=== PATIENT | female | born 1945 | race Caucasian/White ===

== ENCOUNTER 2016-09-22 21:38 | Inpatient (IN) | payer MEDICARE, MEDICAID ==
[2016-09-22] MEDS ORDERED: Aspirin Low Dose CHEW TAB* 81 MG PO ONE (21:52)
[2016-09-22 22:12] LABS: Hematocrit 43 % (35-47); Hemoglobin 14.1 g/dl (12.0-16.0); Mean Corpuscular HGB Conc 33 g/dl (31-36); Mean Corpuscular Hemoglobin 30 pg (27-31); Mean Corpuscular Volume 91 fL (80-97); Mean Platelet Volume 9 um3 (7.4-10.4); Red Blood Count 4.74 10^6/ul (4.0-5.4); Red Cell Distribution Width 13 % (10.5-15); White Blood Count 13.2 10^3/ul (3.5-10.8)
[2016-09-22] MEDS ORDERED: Nitroglycerin TAB 0.4 MG* 0.4 MG TAB ONE (22:18)
[2016-09-22] MEDS ORDERED: Nitroglycerin TAB 0.4 MG* 0.4 MG TAB SL ONE (22:23)
--- NOTE | 2016-09-22 22:27 | RAD ---
INDICATION: Chest pain COMPARISON: February 02, 2009 TECHNIQUE: An AP portable view obtained at 2210 hours is submitted. FINDINGS: Bones/Soft Tissues: There are no acute bony findings. There is sternotomy/CABG Cardiomediastinal: The cardiomediastinal silhouette is normal. Lungs: There are no infiltrates. Pleura: There are no pleural effusions. Other: None IMPRESSION: POSTOPERATIVE CHANGE. NO ACTIVE DISEASE.
[2016-09-22 22:28] LABS: Albumin 4.4 g/dL (3.2-5.2); Calcium 9.8 mg/dL (8.6-10.3); EGFR African American 61.7 (>60); Globulin 3.2 g/dL (2-4); Potassium 4.4 mmol/L (3.5-5.0); Total Bilirubin 0.3 mg/dL (0.2-1.0); Total Protein 7.6 g/dL (6.4-8.9)
[2016-09-22 22:30] LABS: Troponin I 0.01 ng/mL (<0.04)
[2016-09-22] MEDS ORDERED: nitroGLYCERIN DRIP* 25,000 MCG in PREMIX* 0 ML IV ONE (22:45)
[2016-09-22] MEDS ORDERED: Iodixanol* (CONTRAST) 320 MG/ML 100 ML SDV IV ONE (23:00)
[2016-09-23] MEDS ORDERED: Nitroglycerin TAB 0.4 MG* 0.4 MG TAB SL ONE (00:09)
[2016-09-23] MEDS ORDERED: Nitroglycerin 0.4 MG/HR PATCH* (10 MG) TRANSDERM ONE (00:57)
[2016-09-23] MEDS ORDERED: Melatonin (NF) 3 MG TAB PO PRN (01:14)
[2016-09-23] MEDS ORDERED: hydrALAZINE IV* 20 MG/ML VIAL IV PRN (01:14)
[2016-09-23] MEDS ORDERED: Morphine INJ* 2 MG/ML 1 ML SYRINGE IV PRN (01:14)
[2016-09-23] MEDS ORDERED: Ondansetron INJ* 2 MG/ML VIAL IV PRN (01:14)
[2016-09-23] MEDS ORDERED: NS 0.9% 1000 ML* 1,000 ML IV SCH ×2 (01:15→11:45)
--- NOTE | 2016-09-23 01:37 | HP ---
H&P (Free Text) History and Physical: PCP: Shahla Bronson MD Date/Time of Evaluation: 09/23/2016 0100 CC: chest pain HPI: Mrs Amaro is a 71YO female HX CAD/stent presenting with onset ~1700 of substernal chest discomfort radiating to B elbows and through to the back associated with SOB, nausea without emesis, & sweating. She took a total of 3 SL nitro Q5M without much improvement and called EMS. Her blood pressure was > 200 systolic. ED evaluation is notable for an initial ECG showing diffuse ST depressions which resolved after her pain was controlled. Initial troponin was 0.01 with f/u increasing to 1.6. She has been given 324mg chewable aspirin in the ED & has taken her home doses of metoprolol. She will be placed in the ICU on heparin & nitro GTTs with planned cardiology consult in AM, sooner if her condition worsens. PMedHx CAD/3vCABG/stent x6 DM2 HTN PAOD Allergies No Known Allergies Allergy (Verified 06/10/15 11:05) Ambulatory Orders Nursing to reconcile. Aspirin [Aspirin Adult Low Strengt] 81 mg PO DAILY 04/04/12 Famotidine 20 mg PO BID PRN 04/04/12 Glimepiride 1 tab PO QAM 04/04/12 Simvastatin 40 mg PO BEDTIME 04/04/12 Clopidogrel TAB* [Plavix TAB*] 75 mg PO DAILY #30 tab 04/25/16 Nitroglycerin TAB 0.4 MG* 0.4 mg SL Q5M PRN #0 tab 04/25/16 ALPRAZolam TAB* [Xanax TAB*] 0.25 mg PO SEE INSTRUCTIONS PRN 07/22/16 Metoprolol Succinate XL TAB* [Toprol XL TAB*] 50 mg PO BID 07/22/16 amLODIPine TAB* [Norvasc 5 mg TAB*] 2.5 mg PO DAILY 07/22/16 PSurgHx 3vCABG 2009 cardiac stent x3 2009 cardiac stent x3 2016 B carotid endarterectomy SocHx: former smoker, no alcohol or recreational drugs; lives alone; full code status FamHx: positive for HTN, DM ROS: as above, otherwise reviewed and all were negative Constitutional: NAD, normally developed, overweight white female vitals: Vital Signs Temp 36.6 C 09/22/16 22:02 Pulse 81 09/23/16 01:30 Resp 24 09/23/16 01:30 BP 128/55 09/23/16 01:30 Pulse Ox 97 09/23/16 01:30 Intake & Output 09/22/16 09/22/16 09/23/16 11:59 23:59 11:59 Weight 78.018 kg HEENM: atraumatic; sclera/conjunctiva: non-icteric/clear; hearing: clinically intact; oropharynx: clear, mucosa moist Neck: soft tissue: non-tender; thyroid: normal Pulmonary: clear to auscultation bilaterally, good aeration, no accessory muscle use CV: RR/RR, normal S1S2, no carotid bruit, no jugular venous distention, 2+ B DP/ PT, no edema Abdominal: soft, non-distended, non-tender, no rebound/guarding/rigidity, normoactive bowel sounds, no hepatosplenomegaly or masses, no costovertebral angle tenderness Musculoskeletal: general: grossly intact; gait: stable Integumental: normal appearance and texture of exposed skin Psychiatric orientation: AA&O to PPS affect: calm mood: pleasant eye contact: good content: reliable responses: timely insight: fair to good Testing: Lab Results 09/22/16 09/22/16 09/22/16 Range/Units 22:05 22:05 22:05 WBC 13.2 H (3.5-10.8) 10^3/ul RBC 4.74 (4.0-5.4) 10^6/ul Hgb 14.1 (12.0-16.0) g/dl Hct 43 (35-47) % MCV 91 (80-97) fL MCH 30 (27-31) pg MCHC 33 (31-36) g/dl RDW 13 (10.5-15) % Plt Count 227 (150-450) 10^3/ul MPV 9 (7.4-10.4) um3 Neut % (Auto) 63.9 (38-83) % Lymph % (Auto) 25.8 (25-47) % [place] % (Auto) 7.2 (1-9) % Eos % (Auto) 2.1 (0-6) % Baso % (Auto) 1.0 (0-2) % Absolute Neuts (auto) 8.5 H (1.5-7.7) 10^3/ul Absolute Lymphs (auto) 3.4 (1.0-4.8) 10^3/ul Absolute Monos (auto) 0.9 H (0-0.8) 10^3/ul Absolute Eos (auto) 0.3 (0-0.6) 10^3/ul Absolute Basos (auto) 0.1 (0-0.2) 10^3/ul Absolute Nucleated RBC 0 10^3/ul Nucleated RBC % 0 Sodium 134 (133-145) mmol/L Potassium 4.4 (3.5-5.0) mmol/L Chloride 100 L (101-111) mmol/L Carbon Dioxide 28 (22-32) mmol/L Anion Gap 6 (2-11) mmol/L BUN 19 (6-24) mg/dL Creatinine 1.12 H (0.51-0.95) mg/dL Est GFR ( Amer) 61.7 (>60) Est GFR (Non-Af Amer) 48.0 (>60) BUN/Creatinine Ratio 17.0 (8-20) Glucose 114 H (70-100) mg/dL Lactic Acid 1.5 (0.5-2.0) mmol/L Calcium 9.8 (8.6-10.3) mg/dL Total Bilirubin 0.30 (0.2-1.0) mg/dL AST 20 (13-39) U/L ALT 18 (7-52) U/L Alkaline Phosphatase 84 (34-104) U/L Troponin I 0.01 (<0.04) ng/mL Total Protein 7.6 (6.4-8.9) g/dL Albumin 4.4 (3.2-5.2) g/dL Globulin 3.2 (2-4) g/dL Albumin/Globulin Ratio 1.4 (1-3) ECG, personally reviewed: initially w/ diffuse ST depressions improved w/ pain control CTA C/A/P, personally reviewed: no PE, aneurysm, or dissection Impression: 71F presenting with ACS DIAGNOSIS & PLAN Primary ACS : ICU monitoring : NPO : aspirin : metoprolol (took her home dose) : heparin GTT : nitro GTT : trend troponin : supplemental oxygen : cardiology consult in AM : supportive care Secondary DM2 : NPO : bolus/correctional protocol : check A1c HTN : review meds once reconciled PAOD : continue statin once reconciled Admission Rational: inpatient for ICU monitoring of ACS inappropriate for outpatient setting DVTp: heparin GTT Code Status: full HCP: sonErwin
[2016-09-23] MEDS ORDERED: Heparin DRIP 25,000 UNITS(*) 25,000 UNITS/500 ML BAG IVPB SCH (02:15)
[2016-09-23] MEDS ORDERED: Heparin VIAL(*) 5000 UNITS/ML VIAL (FIVE THOUSAND) IV SCH (03:00)
[2016-09-23] MEDS ORDERED: nitroGLYCERIN DRIP* 250 ML IV SCH (03:00)
[2016-09-23] MEDS: Pantoprazole IV* 40 MG IV SCH ×2 (04:13→08:09)
[2016-09-23 05:04] LABS: Hematocrit 41 % (35-47); Hemoglobin 13.1 g/dl (12.0-16.0); Mean Corpuscular HGB Conc 32 g/dl (31-36); Mean Corpuscular Hemoglobin 29 pg (27-31); Mean Corpuscular Volume 91 fL (80-97); Mean Platelet Volume 9 um3 (7.4-10.4); Red Blood Count 4.46 10^6/ul (4.0-5.4); Red Cell Distribution Width 13 % (10.5-15); White Blood Count 14.9 10^3/ul (3.5-10.8)
[2016-09-23] MEDS: Acetaminophen TAB* 325 MG PO PRN ×2 (05:33→21:24)
[2016-09-23] MEDS: Insulin LISPRO* 1 UNITS UNIT SUBCUT SCH ×5 (06:11→20:40)
[2016-09-23] MEDS ORDERED: Famotidine TAB* 20 MG PO PRN (07:16)
[2016-09-23] MEDS ORDERED: ALPRAZolam TAB* 0.25 MG PO PRN (07:17)
--- NOTE | 2016-09-23 07:50 | RAD ---
HISTORY: Chest pain radiating to back COMPARISONS: January 26, 2010 TECHNIQUE: Multiple contiguous axial CT scans were obtained of the chest, abdomen, and pelvis after the administration of intravenous contrast. Coronal and sagittal multiplanar reformations are submitted for review.. Oral contrast was not administered. Delayed images were obtained through the abdomen and pelvis. 3-D volumetric reconstructions of the aorta are also submitted for review FINDINGS: Evaluation is limited by suboptimal contrast opacification of the aorta CHEST NECK AND THYROID: The lower neck and thyroid are unremarkable. CHEST WALL: There is no lower cervical, axillary, or supraclavicular lymphadenopathy by size criteria. HEART AND PERICARDIUM: Coronary and valvular cardiac calcifications are noted. AORTA AND PULMONARY VASCULATURE: There is calcification of the thoracic aorta. The pulmonary vasculature is unremarkable. There is no appreciable intimal flap to suggest dissection. There is no aneurysmal dilatation. There is no pulmonary arterial filling defect to suggest embolism. MEDIASTINUM: There is no mediastinal lymphadenopathy by size criteria. GENEVA: There is no hilar lymphadenopathy by size criteria. AIRWAY AND ESOPHAGUS: The airway is unremarkable, without endobronchial filling defect. The esophagus is grossly normal. LUNG PARENCHYMA: The lungs are clear. PLEURA: No pleural abnormalities are noted. BONES AND SOFT TISSUES: The patient is status post median sternotomy. Degenerative changes are noted along the spine ABDOMEN/PELVIS: LIVER: The liver is normal in shape, size, contour, and attenuation. BILE DUCTS: There is no intrahepatic or extrahepatic biliary dilatation. GALLBLADDER: The gallbladder is normal, without pericholecystic inflammatory change. PANCREAS: The pancreas is normal, without mass or ductal dilatation. SPLEEN: Normal in size and appearance. UPPER GI TRACT: Evaluation of the gastrointestinal tract is limited by incomplete gastric distention. There is a small sliding hiatal hernia SMALL BOWEL \T\ MESENTERY: The small bowel is normal in contour, course, and caliber. There is no obstruction or dilatation. COLON: There are multiple diverticula of the distal colon. There is no pericolonic inflammatory change. There is a tubular, vermiform, hollow viscus that is blind ending, and originates from the cecum, consistent with a normal appendix. There is no periappendiceal inflammatory change. ADRENALS: Normal bilaterally. KIDNEYS: The kidneys are normal in shape, size, contour, and axis. There is no hydronephrosis or nephrolithiasis. BLADDER: The bladder is smooth in contour. PELVIC ORGANS: The uterus and adnexa are grossly normal for technique. AORTA: There is calcific atherosclerotic disease of the abdominal aorta and its branches, without aneurysmal dilatation. IVC: Unremarkable LYMPH NODES: There is no lymphadenopathy by size criteria. ABDOMINAL WALL: There is no evidence for abdominal wall hernia. BONES: Degenerative changes are noted OTHER: None IMPRESSION: 1. NO INTIMAL FLAP TO SUGGEST AORTIC DISSECTION. NO ANEURYSMAL DILATATION OF THE AORTA.. 2. ATHEROSCLEROSIS. 3. DIVERTICULOSIS. 4. SMALL HIATAL HERNIA
[2016-09-23] MEDS ORDERED: Ticagrelor* 90 MG TAB PO ONE (07:59)
[2016-09-23] MEDS: Docusate CAP* 100 MG PO SCH ×2 (08:06→21:24)
[2016-09-23] MEDS: Aspirin Low Dose CHEW TAB* 81 MG PO SCH (08:07)
[2016-09-23] MEDS: Clopidogrel TAB* 75 MG PO SCH (08:19)
[2016-09-23] MEDS ORDERED: amLODIPine TAB* 5 MG PO SCH (09:00)
[2016-09-23] MEDS ORDERED: Metoprolol Succinate XL TAB* 50 MG PO SCH (09:00)
[2016-09-23] MEDS ORDERED: Clopidogrel TAB* 75 MG PO SCH (09:00)
[2016-09-23] MEDS ORDERED: fentaNYL* 50 MCG/ML 2 ML VIAL (100 MCG VIAL) ONE (09:22)
[2016-09-23] MEDS ORDERED: Midazolam* 1 MG/ML 5 ML VIAL (5 MG) ONE (09:22)
[2016-09-23] MEDS ORDERED: Lidocaine 1% INJ* 10 MG/ML 30 ML SDV ONE (09:23)
[2016-09-23] MEDS ORDERED: Heparin 2 UNITS/ML IVPREMIX* 3,000 ML IV ONE (09:23)
[2016-09-23] MEDS ORDERED: Adenosine* 3 MG/ML VIAL ONE (10:58)
[2016-09-23] MEDS ORDERED: Heparin(*) 1000 UNIT/ML 10 ML VIAL CATH LAB IV ONE (11:01)
[2016-09-23] MEDS ORDERED: Iodixanol* (CONTRAST) 320 MG/ML 100 ML SDV ONE (11:09)
[2016-09-23] MEDS ORDERED: Nitroglycerin TAB 0.4 MG* 0.4 MG TAB SL PRN (11:32)
[2016-09-23] MEDS ORDERED: Metoprolol Succinate XL TAB* 25 MG PO ONE (11:44)
[2016-09-23] MEDS ORDERED: amLODIPine TAB* 5 MG PO ONE (11:44)
--- NOTE | 2016-09-23 12:57 | CONS ---
CONSULTATION REPORT: DATE OF CONSULT: 09/23/16 INDICATION FOR CONSULT: The patient with a non-STEMI myocardial infarction. HISTORY OF PRESENT ILLNESS: The patient is a pleasant 71-year-old female known to me for significant vascular disease, who presents having had the onset of around 5 p.m. yesterday of chest discomfort radiating to both elbows and through the back associated with shortness of breath, some nauseousness and sweating. She took 3 nitroglycerins, got relief and eventually called the paramedics. She presented to the emergency room at 2138. Over the course of her time in the emergency room, she had received further nitroglycerin and eventually had relief of her symptoms. She was placed on an IV nitroglycerin drip and maintained on her medications. Her initially EKG demonstrated ST segment depressions noted in V2, V3, V4 and suddenly in V5 and V6 as well as aVF and III and slightly in lead II. Followup EKG showed significant improvement of those ST segments. Over the course of the night, her cardiac enzymes scott from an initial value of 0.01 to high this morning of 4.19. There are no further ones at this moment. In sitting with her now, she is completely without significant symptoms. She has a significant coronary artery history including acute coronary syndrome in 2008 with catheterization with the presence of multivessel disease, subsequently undergoing a bypass surgery on 02/12/09 with a free pedicled ANNIE graft to an obtuse marginal branch, a vein graft to a low posterolateral branch of the circumflex, and a vein graft to the right coronary artery. She had unstable angina in 2009 with subsequent cardiac catheterization during which time the circumflex had mild diffuse disease in the proximal segment with 75% stenosis passed a very small first obtuse marginal branch and occluded second obtuse marginal branch, which was bypassed and a long 90% stenosis in the distal circumflex. The distal end of the occluded graft of the posterior LV branch was seen. The right coronary artery was totally occluded proximally. The vein graft to the right coronary artery was well perfused. Saphenous vein graft to the posterolateral branch was occluded. The free pedicle ANNIE graft to the second obtuse marginal branch had an 80% proximal stenosis and was intervened on with placement of a 2.25 x 12 mm long Edson drug-eluting stent proximally dilated to 2.5 mm of stenting in the distal lesion in the circumflex with 2.25 x 16 mm long Edson resulting in closure of a postero-lateral branch distally to the stent, which was treated with a second 2.25 x 12 mm long Edson stent. She developed a ST segment elevation lateral wall myocardial infarction on 04/22/16 with cardiac catheterization showing critical disease to the mid and distal circumflex, which was stented with drug-eluting stents with moderate in-stent restenosis to the ostium/proximal portion of the vein graft of the obtuse marginal branch. She did well post procedure and underwent a stress test on 07/23/16 with a Regadenoson stress test during which time the nuclear images showed no fixed or reversible fusion abnormalities. The EF was 84% and there were no EKG changes of ischemia or significant hemodynamic changes. Her cardiac risk factors include a history of type 2 insulin diabetes, hypertension. She currently does not smoke. She has no family history of early coronary artery disease and she has hyperlipidemia. PAST MEDICAL HISTORY: Includes the essential hypertension. She has peripheral vascular disease with carotid artery disease with reportedly a total carotid endarterectomy back in 2009 in the left and right carotid endarterectomy in 2013. She has reportedly history of a brain hemorrhage in the past, which has precluded the usage of other antiplatelet agents other than clopidogrel. She has a history of ovarian cyst and coronary artery disease. PAST SURGICAL HISTORY: Bypass surgery as mentioned earlier and the carotid endarterectomy to the left in 2009 and to the right in 2013. MEDICATIONS: Current medications at home and included: 1. Amlodipine 2.5 mg daily. 2. Metoprolol succinate 50 mg twice a day. 3. Alprazolam as needed. 4. Nitroglycerin as needed. 5. Clopidogrel 75 mg a day. 6. Glimepiride 1 mg in the morning. 7. Simvastatin 40 mg a day. 8. Baby aspirin 81 mg a day. 9. Famotidine p.r.n. ALLERGIES: She has no known drug allergies. REVIEW OF SYSTEMS: As per the H and P with no additional entries. PHYSICAL EXAM: When I see her reveals pleasant female, currently in no acute distress. Vital signs revealed blood pressure 151/69 with pulse 87. This is before medications were being given, respirations 15, O2 saturation 96% on room air, pulse 83. Neck is supple. Bilateral scars from bilateral carotid endarterectomies were noted. The left carotid artery has a bruit; the right does not. Conjunctivae pink. Sclerae clear. Mouth reveals moist mucosa. Lungs reveal no accessory muscle usage. There is good excursion. Lungs are relatively clear to A and P. Heart reveals no visible heaves. No palpable heaves or thrills. Normal S1, S2. A question of a S4 gallop is noted. No significant systolic or diastolic murmur. Abdomen is soft, nontender without organomegaly. Extremities are without clubbing, cyanosis, or geoff pitting edema. Right femoral pulse is present. There is a soft bruit. The left femoral pulse is difficult to palpate. Distal pulses on the right are intact. Neuro: The patient is alert, oriented with normal mentation. Musculoskeletal: The patient moves all extremities appropriate. Psychological: The patient with normal affect. DIAGNOSTIC STUDIES/LAB DATA: Laboratory results revealed a hemoglobin and hematocrit of 14.1 and 43 on admission with a platelet count of 227,000, white count 13,200, repeat white count of 14,900, hemoglobin 13.1 and hematocrit of 41. Platelet count of 210,000. BUN and creatinine are 19 and 1.1. Sodium 134, potassium 4.4. Lactic acid 1.5. SGOT 20, SGPT 18. Troponins were as mentioned above starting at 0.01 to 1.62 to 4.19. Total protein and albumin 7.6 and 4.4. Electrocardiogram as described above with reversible ST segment depression in the early precordial leads as well as inferior leads. Chest x- ray shows no acute pathology. OVERALL ASSESSMENT: Lise presents now with non-ST segment elevation, myocardial infarction with reversible ST segment changes. Of note, if this is a posterior wall involvement, one could argue that this was potentially reversible ST segment elevation. At this point in time, she is stable on the heparin drip and on clopidogrel. Unfortunately, she has a history of remote intracranial hemorrhage and as such although I would like to use Brilinta, at this point in time, I am hesitant about proceeding with that until we get a better sense of what is her anatomy and what can and cannot be done percutaneously. The risks and benefits of cardiac catheterization were explained to her. She understands them and wishes to proceed. She reversed her DNR status for at least a month following cardiac catheterization. Further management will be made pending results of the cardiac catheterization. CC: Dr. Orlando Bronson* [id number]/[facility] #: [id number] MTDD
[2016-09-23] MEDS ORDERED: Lisinopril TAB* 5 MG PO ONE (15:07)
--- NOTE | 2016-09-23 19:59 | ED ---
Pancho Byrnes Billy, scribed for Jeffrey Cagle MD on 09/22/16 at 2243 . HPI Chest Pain - HPI Summary HPI Summary: Patient is a 71 year-old female coming to [facility] presenting with symptoms similar to her previous OK since 1700 today at rest. Patient states that she had chest pain at 1700 today which improved with 3x NTG. However, she continues to have pain in her elbows bilaterally and in her back. She reports BP 220 systolic at the time of onset. Pain severity 12/23. She reports mild SOB which has improved. Denies any lower extremity edema. - History of Current Complaint Chief Complaint: EDChestPainROMI Time Seen by Provider: 09/22/16 21:52 Hx Obtained From: Patient Onset/Duration: Started Hours Ago, Still Present Time of Onset: 17:00 Timing: Constant Initial Severity: Moderate Current Severity: Moderate Pain Intensity: 7 Pain Scale Used: 0-10 Numeric Chest Pain Radiates To:: Back, Arm Aggravating Factor(s): Nothing Alleviating Factor(s): NTG 123 Associated Signs and Symptoms: Positive: Shortness of Breath, Other: - hypertension - Additional Pertinent History Primary Care Physician: [id number] - Allergy/Home Medications Allergies/Adverse Reactions: Allergies Allergy/AdvReac Type Severity Reaction Status Date / Time No Known Allergies Allergy Verified 06/10/15 11:05 PMH/Surg Hx/FS Hx/Imm Hx Endocrine/Hematology History: Reports: Hx Diabetes - TYPE 2 Cardiovascular History: Reports: Hx Angina - HEAVINESS, Hx Coronary Artery Disease - TIEN ENDARTERECTOMYS, Hx Hypercholesterolemia, Hx Hypertension - ON MEDS, Hx Myocardial Infarction, Other Cardiovascular Problems/Disorders - 2009, 4 CARDAIC STENTS Respiratory History: Denies: Hx Asthma GI History: Reports: Hx Gastroesophageal Reflux Disease Denies: Other GI Disorders History: Reports: Other Problems/Disorders - 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 4 CARDIAC STENTS, 2009, [facility]. TIEN ENDARTERECTOMYS, 2010, 2013, [facility]. OVARYS REMOVED, 12/2014, [facility]. TRANSURETHRAL RESECTION OF BLADDER LESION. left breast lumpectomy stage zero. LUMPECTOMY. RIGHT RETROGRADE PYELOGRAM AND RT STENT INSERTION Hx Anesthesia Reactions: No - Immunization History Date of Tetanus Vaccine: Unk Date of Influenza Vaccine: None Infectious Disease History: No Infectious Disease History: Denies: Traveled Outside the [place] in Last 30 Days - Family History Known Family History: Positive: Cardiac Disease - Social History Alcohol Use: None Substance Use Type: Reports: None Smoking Status (MU): Current Some Day Smoker Type: Cigarettes Amount Used/How Often: 1 a day Have You Smoked in the Last Year: Yes Review of Systems Negative: Fever Negative: Erythema Negative: Sore Throat Positive: Chest Pain, Other - 220 systolic Positive: Shortness Of Breath. Negative: Cough Negative: Abdominal Pain, Vomiting, Nausea Negative: Myalgia, Edema Negative: Rash All Other Systems Reviewed And Are Negative: Yes Physical Exam - Summary Physical Exam Summary: Constitutional: Well-developed, Well-nourished, Alert. (-) Distressed Skin: Warm, Dry HENT: Normocephalic; Atraumatic Eyes: Conjunctiva normal Neck: Musculoskeletal ROM normal neck. (-) JVD, (-) Stridor, (-) Tracheal deviation Cardio: Rhythm regular, rate normal, Heart sounds normal; Intact distal pulses; The pedal pulses are 2+ and symmetric. Radial pulses are 2+ and symmetric. (-) Murmur Pulmonary/Chest wall: Effort normal. (-) Respiratory distress, (-) Wheezes, (-) Rales Abd: Soft, (-) Tenderness, (-) Distension, (-) Guarding, (-) Rebound Musculoskeletal: (-) Edema Lymph: (-) Cervical adenopathy Neuro: Alert, Oriented x3 Psych: Mood and affect Normal Triage Information Reviewed: Yes Vital Signs On Initial Exam: Initial Vitals Temp Pulse Resp BP Pulse Ox 98 F 87 17 187/83 98 09/22/16 22:02 09/22/16 22:02 09/22/16 22:02 09/22/16 22:02 09/22/16 22:02 Vital Signs Reviewed: Yes Diagnostics - Vital Signs Vital Signs Temp Pulse Resp BP Pulse Ox 09/22/16 22:23 89 16 137/66 98 09/22/16 22:05 92 98 09/22/16 22:02 98 F 87 17 187/83 98 - Laboratory Lab Results: Lab Results 09/22/16 09/22/16 09/22/16 Range/Units 22:05 22:05 22:05 WBC 13.2 H (3.5-10.8) 10^3/ul RBC 4.74 (4.0-5.4) 10^6/ul Hgb 14.1 (12.0-16.0) g/dl Hct 43 (35-47) % MCV 91 (80-97) fL MCH 30 (27-31) pg MCHC 33 (31-36) g/dl RDW 13 (10.5-15) % Plt Count 227 (150-450) 10^3/ul MPV 9 (7.4-10.4) um3 Neut % (Auto) 63.9 (38-83) % Lymph % (Auto) 25.8 (25-47) % [place] % (Auto) 7.2 (1-9) % Eos % (Auto) 2.1 (0-6) % Baso % (Auto) 1.0 (0-2) % Absolute Neuts (auto) 8.5 H (1.5-7.7) 10^3/ul Absolute Lymphs (auto) 3.4 (1.0-4.8) 10^3/ul Absolute Monos (auto) 0.9 H (0-0.8) 10^3/ul Absolute Eos (auto) 0.3 (0-0.6) 10^3/ul Absolute Basos (auto) 0.1 (0-0.2) 10^3/ul Absolute Nucleated RBC 0 10^3/ul Nucleated RBC % 0 Sodium 134 (133-145) mmol/L Potassium 4.4 (3.5-5.0) mmol/L Chloride 100 L (101-111) mmol/L Carbon Dioxide 28 (22-32) mmol/L Anion Gap 6 (2-11) mmol/L BUN 19 (6-24) mg/dL Creatinine 1.12 H (0.51-0.95) mg/dL Est GFR ( Amer) 61.7 (>60) Est GFR (Non-Af Amer) 48.0 (>60) BUN/Creatinine Ratio 17.0 (8-20) Glucose 114 H (70-100) mg/dL Lactic Acid 1.5 (0.5-2.0) mmol/L Calcium 9.8 (8.6-10.3) mg/dL Total Bilirubin 0.30 (0.2-1.0) mg/dL AST 20 (13-39) U/L ALT 18 (7-52) U/L Alkaline Phosphatase 84 (34-104) U/L Troponin I 0.01 (<0.04) ng/mL Total Protein 7.6 (6.4-8.9) g/dL Albumin 4.4 (3.2-5.2) g/dL Globulin 3.2 (2-4) g/dL Albumin/Globulin Ratio 1.4 (1-3) Result Diagrams: 09/23/16 05:00 09/22/16 22:05 Lab Statement: Any lab studies that have been ordered have been reviewed, and results considered in the medical decision making process. - Radiology CXR Radiology Interpretation Completed By: Radiologist - Post-operative changes. No acute findings. - CT CTA C/A/P CT Interpretation Completed By: Radiologist - No aortic dissection or other findings for acute pathology. Tiny hiatal hernia. - EKG 2211 EKG Interpretation: NSR 89 bpm, ST depression in anterior, inferior, and lateral leads 0021 EKG Interpretation: NSR 84 bpm, ST depression resolved Re-Evaluation - Re-Evaluation First Eval Re-Evaluation Time: 00:55 Change: Improved Comment: Labs and imaging reviewed. Pain is now 10/23. Chest Pain Course/Dx - Course Assessment/Plan: 71 y/o female coming to [facility] for evaluation of chest pain since 0 today. CTA c/a/p was reviewed as read by the radiologist. CXR shows no acute findings. Initial EKG showed ST depressions, although these improved markedly with a repeat EKG two hours later. Patient was given ASA and NTG in the ED. Patient care discussed with Dr. Garsia, who accepted admission. - Diagnoses Provider Diagnoses: Myocardial ischemia, Angina at rest - Provider Notifications Discussed Care Of Patient With: Dr. Garsia (hospitalist) @ 0100: accepts admission. Discharge - Discharge Plan Condition: Stable Disposition: ADMITTED TO [facility] The documentation as recorded by the Pancho broussard Billy accurately reflects the service I personally performed and the decisions made by me, Jeffrey Cagle MD.
[2016-09-23] MEDS ORDERED: Insulin GLARGINE(*) 1 UNITS UNIT SUBCUT SCH (21:00)
[2016-09-23] MEDS ORDERED: Atorvastatin* 20 MG TAB PO SCH (21:00)
[2016-09-23] MEDS ORDERED: Metoprolol Succinate XL TAB* 25 MG PO SCH (21:00)
[2016-09-24] MEDS ORDERED: Heparin VIAL(*) 5000 UNITS/ML VIAL (FIVE THOUSAND) SUBCUT SCH (06:00)
[2016-09-24 06:10] LABS: Hematocrit 36 % (35-47); Hemoglobin 11.8 g/dl (12.0-16.0); Mean Corpuscular HGB Conc 32 g/dl (31-36); Mean Corpuscular Hemoglobin 29 pg (27-31); Mean Corpuscular Volume 91 fL (80-97); Mean Platelet Volume 9 um3 (7.4-10.4); Red Blood Count 4.01 10^6/ul (4.0-5.4); Red Cell Distribution Width 13 % (10.5-15); White Blood Count 10.6 10^3/ul (3.5-10.8)
[2016-09-24 06:25] LABS: Albumin 3.3 g/dL (3.2-5.2); BUN/Creatinine Ratio 13.5 (8-20); Calcium 8.6 mg/dL (8.6-10.3); EGFR African American 80.4 (>60); EGFR Non-African American 62.5 (>60); Globulin 2.5 g/dL (2-4); HDL Cholesterol 31.9 mg/dL; Potassium 3.8 mmol/L (3.5-5.0); Total Bilirubin 0.4 mg/dL (0.2-1.0); Total Protein 5.8 g/dL (6.4-8.9)
[2016-09-24] MEDS: Insulin LISPRO* 1 UNITS UNIT SUBCUT SCH ×4 (07:54→12:07)
[2016-09-24] MEDS: Pantoprazole IV* 40 MG IV SCH (08:01)
[2016-09-24] MEDS: Aspirin Low Dose CHEW TAB* 81 MG PO SCH (08:01)
[2016-09-24] MEDS: Docusate CAP* 100 MG PO SCH (08:01)
[2016-09-24] MEDS: Clopidogrel TAB* 75 MG PO SCH (08:02)
--- NOTE | 2016-09-24 08:56 | CATH ---
CARDIAC CATHETERIZATION AND FRACTIONAL FLOW RESERVE REPORT DATE OF PROCEDURE: 09/24/16 INDICATION FOR PROCEDURE: Patient with acute coronary syndrome, non-ST- elevation myocardial infarction by cardiac enzymes. PROCEDURE: Coronary arteriography of the left coronary artery, vein graft arteriography of the right coronary artery vein graft, free pedicle ANNIE arteriography to the obtuse marginal branch, left heart catheterization, left ventriculography, fractional flow reserve analysis of mid posterior descending artery lesion via the vein graft to the right coronary artery. DESCRIPTION OF PROCEDURE: The patient was interviewed and examined in the intensive care unit where the risks and benefits of the procedure were explained. She understood them and wished to proceed. The patient was brought to the cardiovascular laboratory where formal time-out was performed. The patient was prepped and draped in sterile fashion. Right groin area was anesthetized with 1% lidocaine. Right femoral artery was cannulated, and a 5- [place] introducer was placed. Coronary arteriography of the left coronary artery was performed utilizing both a 5-[place] 4-curve [place] catheter and a 5- [place] 3.5-curve left [place] catheter. Vein graft arteriography of the right coronary artery was performed utilizing a 5-[place] multi-purpose catheter. Free pedicle ANNIE graft arteriography to the obtuse marginal branch was performed utilizing a 5-[place] left coronary artery bypass graft catheter. Following this, central aortic pressure was recorded using a 5-[place] angled pigtail catheter advanced to the ascending aorta. The catheter was then passed across the aortic valve to the left ventricle where left ventricular pressure was recorded. Left ventriculography was performed using a total of 24 cc of Visipaque dye at a rate of 12 cc/second. The catheter was pulled back across the aortic valve to recheck gradient. Following this, the decision was made to perform fractional flow reserve analysis of the mid lesion in the right- sided posterior descending artery via the vein graft to the posterior descending artery. ACT was checked with her on a heparin drip, and additional heparin boluses were given to obtain a therapeutic ACT. Guiding views were obtained utilizing the 5-[place] multipurpose catheter. A Wi-Fi FFR wire by [employer] [place] was advanced down the vein graft into the [place] right coronary artery after being calibrated just outside the diagnostic catheter. The Wi-Fi wire was passed distal to the mid lesion in the right coronary artery posterior descending artery branch. A bolus of 144 mcg of Adenosine was administered with the patient developing transient heart block and FFR was obtained. Following this, the wire was removed and the catheter was removed. An injection was made into the right femoral sheath to assess eligibility to use closure device. It was found to be suboptimal for this and, as such, the sheath was sutured in place for manual withdrawal in the intensive care unit. The total contrast used was 180 cc of Visipaque dye. The radiation exposure included 18.4 minutes of fluoro time. The air kerma radiation was 1564 mGy. The DAP radiation was 9757 microgray per meter square. RESULTS: HEMODYNAMIC DATA: - Left heart catheterization: Central aortic pressure was recorded at 156/ 73 with a mean of 108, left ventricular pressure 154 over left ventricular end- diastolic pressure of 15. LEFT VENTRICULOGRAPHY: - Performed in the URIARTE projection revealed hyperdynamic left ventricular systolic function with an ejection fraction of 80%. CORONARY ARTERIOGRAPHY OF THE LEFT CORONARY ARTERY: 1. Left main - left main short in nature and widely patent. 2. Left anterior descending artery - the left anterior descending artery had mild to moderate calcification in its proximal to mid segment with area of reduction of perhaps 30-35%. A small caliber first diagonal branch had a 55-60 % proximal stenosis noted (a non-interventional vessel). The rest of the left anterior descending artery supplied the mid diagonal branch which had no significant disease. The left anterior descending artery continued on to the apical and distal inferior wall without significant obstruction. 3. Circumflex artery - a non-dominant vessel supplying a thin first obtuse marginal branch followed by small caliber second and third obtuse marginal branch ending in a low-lying obtuse marginal branch. The proximal and ostial circumflex was a small caliber vessel with damping of the catheter on the 5- [place] insertion. The degree of narrowing throughout this proximal area compared to the more distal area appeared to be approximately 55-60%. The area of prior stenting appeared to be widely patent with no significant stenosis. Just past the most distal stent was a narrowing of about 45-50%. VEIN GRAFT TO RIGHT CORONARY ARTERY: Widely patent with good anastomosis with retrograde filling of the right coronary artery. Of note - the mid segment of the posterior descending artery had a slightly hazy, 65% obstruction noted. The rest of the right coronary artery appeared to have no significant disease on retrograde filling. It did not fill up to the most proximal segment of the right coronary artery. (The right coronary artery was known to be 100% occluded from multiple prior catheterizations.) FREE PEDICLE ANNIE GRAFT TO OBTUSE MARGINAL BRANCH: A proximal area of the ANNIE graft showed narrowing of 55% in its proximal segment in multiple views. The rest of the vein graft supplied the obtuse marginal branch with no significant stenosis seen. FRACTIONAL FLOW RESERVE ANALYSIS OF THE MID POSTERIOR DESCENDING ARTERY LESION - (performed via the vein graft to the posterior descending artery): Fractional flow reserve value obtained was 0.97 after administration of 144 mcg of Adenosine. OVERALL ASSESSMENT: Multiple vessel coronary artery disease as described above with prior known total occlusion of the right coronary artery, and diffusely diseased proximal non- critical circumflex but small caliber as described. Prior history of known totally occluded vein graft to low-lying obtuse marginal branch with widely patent stents to the circumflex area from prior intervention. Moderate disease in the proximal portion of the free pedicle ANNIE graft to the mid diagonal branch as described. A negative fractional flow reserve analysis to the mid right coronary artery posterior descending artery lesion suggested, and not a hemodynamically significant lesion at this time. Recommend aggressive medical management, specifically directed toward control of blood pressure to avoid excessive blood pressure swings that may produce stress- induced myocardial ischemia or damage. Medications will be titrated over the course of the next 24-48 hours. CC: Dr. Bronson. * [id number]/CPS #: [id number] GLORIA
[2016-09-24] MEDS ORDERED: amLODIPine TAB* 5 MG PO SCH (09:00)
[2016-09-24] MEDS ORDERED: Lisinopril TAB* 5 MG PO SCH (09:00)
[2016-09-24] MEDS ORDERED: Metoprolol Succinate XL TAB* 100 MG PO SCH (09:00)
[2016-09-24] MEDS: NS 0.9% 250 ML* 250 ML IV ONE ×2 (10:00→10:15)
--- NOTE | 2016-09-24 10:38 | DCNOTE ---
Subjective Date of Service: 09/24/16 Interval History: No chest pain, cough, SOB. Walked in [place] without dizziness. No new c/o, anxious to go home. Objective Active Medications: Acetaminophen (Tylenol Tab*) 650 mg PO Q6H PRN PRN Reason: FEVER/PAIN Last Admin: 09/23/16 21:24 Dose: 650 mg Alprazolam (Xanax Tab*) 0.25 mg PO TID PRN PRN Reason: ANXIETY Last Admin: 09/23/16 17:54 Dose: 0.25 mg Amlodipine Besylate (Norvasc Tab*) 5 mg PO DAILY [facility] Last Admin: 09/24/16 08:01 Dose: 5 mg Aspirin (Aspirin Low Dose Tab*) 81 mg PO DAILY [facility] Last Admin: 09/24/16 08:01 Dose: 81 mg Atorvastatin Calcium (Lipitor*) 20 mg PO BEDTIME [facility] Last Admin: 09/23/16 21:24 Dose: 20 mg Clopidogrel Bisulfate (Plavix Tab*) 75 mg PO DAILY [facility] Last Admin: 09/24/16 08:02 Dose: 75 mg Docusate Sodium (Colace Cap*) 200 mg PO BID [facility] Last Admin: 09/24/16 08:01 Dose: 200 mg Famotidine (Pepcid Tab*) 20 mg PO BID PRN PRN Reason: HEARTBURN Last Admin: 09/23/16 08:07 Dose: 20 mg Heparin Sodium (Porcine) (Heparin Vial(*)) 0 units IV .PER PROTOCOL [facility] Sodium Chloride (Ns 0.9% 1000 Ml*) 1,000 mls @ 75 mls/hr IV PER RATE [facility] Last Admin: 09/23/16 04:02 Dose: 75 mls/hr Heparin Sodium/Dextrose (Heparin Drip 25,000 Units(*)) 25,000 units in 500 mls @ 0 mls/hr IVPB .(INITIAL RATE) [facility]; Per Protocol PRN Reason: Protocol Last Admin: 09/23/16 04:03 Dose: 20 mls/hr Nitroglycerin/Dextrose (Nitroglycerin Drip*) 250 mls @ 3 mls/hr IV .(Initial Rate) [facility] PRN Reason: 5 MCG/MIN Last Admin: 09/23/16 04:10 Dose: 3 mls/hr Insulin Glargine (Lantus(*)) 19 units SUBCUT 2100 [facility] Stop: 09/24/16 20:00 Last Admin: 09/23/16 21:24 Dose: Not Given Insulin Human Lispro (Humalog*) 0 units SUBCUT ACHS [facility] PRN Reason: Protocol Last Admin: 09/24/16 07:54 Dose: Not Given Insulin Human Lispro (Humalog*) 0 units SUBCUT AC [facility] PRN Reason: Protocol Last Admin: 09/24/16 08:50 Dose: Not Given Lisinopril (Prinivil Tab*) 5 mg PO DAILY [facility] Last Admin: 09/24/16 08:01 Dose: 5 mg Melatonin (Melatonin (Nf)) 3 mg PO BEDTIME PRN; Protocol PRN Reason: Sleep Metoprolol Succinate (Toprol Xl Tab*) 100 mg PO BID [facility] Last Admin: 09/24/16 08:01 Dose: 100 mg Morphine Sulfate (Morphine Inj (Syringe)*) 2 mg IV Q4H PRN PRN Reason: PAIN - MILD Nitroglycerin (Nitroglycerin Tab 0.4 Mg*) 0.4 mg SL Q5M PRN PRN Reason: ANGINA Ondansetron HCl (Zofran Inj*) 4 mg IV Q6H PRN PRN Reason: NAUSEA Last Admin: 09/23/16 18:35 Dose: 4 mg Pantoprazole Sodium (Protonix Iv*) 40 mg IV DAILY [facility] Last Admin: 09/24/16 08:01 Dose: 40 mg Vital Signs 09/23/16 09/23/16 09/23/16 10:52 11:00 11:30 Temperature Pulse Rate 55 60 Respiratory Rate Blood Pressure 109/70 120/60 116/60 (mmHg) O2 Sat by Pulse 96 97 Oximetry 09/23/16 09/23/16 09/23/16 11:50 12:00 12:04 Temperature Pulse Rate 62 59 Respiratory 15 Rate Blood Pressure 163/79 132/122 (mmHg) O2 Sat by Pulse 95 98 Oximetry 09/23/16 09/23/16 09/23/16 12:09 12:15 12:30 Temperature 98.2 F Pulse Rate 80 79 Respiratory 16 15 15 Rate Blood Pressure (mmHg) O2 Sat by Pulse 95 96 Oximetry 09/23/16 09/23/16 09/23/16 12:45 13:00 13:09 Temperature Pulse Rate 78 78 Respiratory 19 14 14 Rate Blood Pressure (mmHg) O2 Sat by Pulse 97 96 Oximetry 09/23/16 09/23/16 09/23/16 13:15 13:23 13:30 Temperature Pulse Rate 72 73 Respiratory 15 18 Rate Blood Pressure 122/64 (mmHg) O2 Sat by Pulse 96 96 Oximetry 09/23/16 09/23/16 09/23/16 13:45 14:00 14:15 Temperature Pulse Rate 73 71 81 Respiratory 14 16 22 Rate Blood Pressure (mmHg) O2 Sat by Pulse 98 99 99 Oximetry 09/23/16 09/23/16 09/23/16 14:22 14:30 14:45 Temperature Pulse Rate 70 80 79 Respiratory 16 17 14 Rate Blood Pressure 120/61 (mmHg) O2 Sat by Pulse 98 98 100 Oximetry 09/23/16 09/23/16 09/23/16 15:00 15:08 15:15 Temperature Pulse Rate 95 83 78 Respiratory 25 18 16 Rate Blood Pressure 130/72 89/65 (mmHg) O2 Sat by Pulse 99 99 99 Oximetry 09/23/16 09/23/16 09/23/16 15:30 15:45 16:00 Temperature Pulse Rate 60 74 81 Respiratory 17 18 Rate Blood Pressure 100/70 138/63 (mmHg) O2 Sat by Pulse 96 99 99 Oximetry 09/23/16 09/23/16 09/23/16 16:15 16:30 16:44 Temperature Pulse Rate 77 79 Respiratory 14 15 15 Rate Blood Pressure (mmHg) O2 Sat by Pulse 100 99 Oximetry 09/23/16 09/23/16 09/23/16 16:45 17:00 17:13 Temperature Pulse Rate 84 77 Respiratory 16 15 15 Rate Blood Pressure 125/56 (mmHg) O2 Sat by Pulse 100 98 Oximetry 09/23/16 09/23/16 09/23/16 17:15 17:30 17:31 Temperature Pulse Rate 76 75 76 Respiratory 17 19 16 Rate Blood Pressure 144/72 (mmHg) O2 Sat by Pulse 99 99 99 Oximetry 09/23/16 09/23/16 09/23/16 17:45 17:48 17:54 Temperature Pulse Rate 81 86 Respiratory 15 20 15 Rate Blood Pressure 171/74 (mmHg) O2 Sat by Pulse 99 99 Oximetry 09/23/16 09/23/16 09/23/16 17:56 18:00 18:01 Temperature Pulse Rate 79 84 Respiratory 18 16 15 Rate Blood Pressure 148/81 162/76 (mmHg) O2 Sat by Pulse 98 98 Oximetry 09/23/16 09/23/16 09/23/16 18:15 18:30 18:45 Temperature Pulse Rate 84 87 94 Respiratory 20 18 20 Rate Blood Pressure 142/71 130/69 159/67 (mmHg) O2 Sat by Pulse 97 99 99 Oximetry 09/23/16 09/23/16 09/23/16 18:59 19:00 19:15 Temperature Pulse Rate 82 84 Respiratory 15 18 19 Rate Blood Pressure 152/67 129/61 (mmHg) O2 Sat by Pulse 98 98 Oximetry 09/23/16 09/23/16 09/23/16 19:30 19:45 20:00 Temperature Pulse Rate 80 80 79 Respiratory 15 17 17 Rate Blood Pressure 130/56 117/53 126/58 (mmHg) O2 Sat by Pulse 97 98 99 Oximetry 09/23/16 09/23/16 09/23/16 20:15 20:27 20:30 Temperature 97.9 F Pulse Rate 77 78 Respiratory 15 15 Rate Blood Pressure 109/50 108/39 (mmHg) O2 Sat by Pulse 97 97 Oximetry 09/23/16 09/23/16 09/23/16 20:45 21:00 21:15 Temperature Pulse Rate 76 86 83 Respiratory 16 19 19 Rate Blood Pressure 103/40 96/41 115/48 (mmHg) O2 Sat by Pulse 97 98 99 Oximetry 09/23/16 09/23/16 09/23/16 21:30 21:45 22:00 Temperature Pulse Rate 78 67 66 Respiratory 18 15 15 Rate Blood Pressure 105/39 94/29 (mmHg) O2 Sat by Pulse 98 98 98 Oximetry 09/23/16 09/23/16 09/23/16 22:15 22:30 22:45 Temperature Pulse Rate 63 59 71 Respiratory 16 16 16 Rate Blood Pressure 87/37 (mmHg) O2 Sat by Pulse 97 97 98 Oximetry 09/23/16 09/23/16 09/23/16 23:00 23:15 23:30 Temperature Pulse Rate 68 70 75 Respiratory 16 16 18 Rate Blood Pressure 111/40 111/46 (mmHg) O2 Sat by Pulse 97 96 99 Oximetry 09/23/16 09/24/16 09/24/16 23:45 00:00 00:05 Temperature 98.6 F Pulse Rate 77 Respiratory 20 17 19 Rate Blood Pressure 111/75 (mmHg) O2 Sat by Pulse 99 Oximetry 09/24/16 09/24/16 09/24/16 00:15 00:19 00:30 Temperature Pulse Rate 79 72 81 Respiratory 16 16 18 Rate Blood Pressure (mmHg) O2 Sat by Pulse 98 98 98 Oximetry 09/24/16 09/24/16 09/24/16 00:45 01:00 01:15 Temperature Pulse Rate 79 77 79 Respiratory 15 15 16 Rate Blood Pressure 113/41 (mmHg) O2 Sat by Pulse 96 97 95 Oximetry 09/24/16 09/24/16 09/24/16 01:30 01:45 02:00 Temperature Pulse Rate 73 70 67 Respiratory 15 15 15 Rate Blood Pressure 130/52 (mmHg) O2 Sat by Pulse 95 95 95 Oximetry 09/24/16 09/24/16 09/24/16 02:15 02:30 02:45 Temperature Pulse Rate 76 75 63 Respiratory 14 15 15 Rate Blood Pressure (mmHg) O2 Sat by Pulse 96 95 96 Oximetry 09/24/16 09/24/16 09/24/16 03:00 03:15 03:30 Temperature Pulse Rate 75 62 66 Respiratory 16 15 16 Rate Blood Pressure 111/40 (mmHg) O2 Sat by Pulse 95 95 96 Oximetry 09/24/16 09/24/16 09/24/16 03:45 04:00 04:15 Temperature 98.7 F Pulse Rate 78 87 77 Respiratory 15 15 15 Rate Blood Pressure 130/56 (mmHg) O2 Sat by Pulse 97 97 98 Oximetry 09/24/16 09/24/16 09/24/16 04:30 04:45 05:00 Temperature Pulse Rate 75 77 75 Respiratory 15 15 14 Rate Blood Pressure 135/90 (mmHg) O2 Sat by Pulse 97 97 97 Oximetry 09/24/16 09/24/16 09/24/16 05:15 05:30 05:45 Temperature Pulse Rate 87 82 79 Respiratory 19 18 14 Rate Blood Pressure (mmHg) O2 Sat by Pulse 97 97 97 Oximetry 09/24/16 09/24/16 09/24/16 06:00 06:15 06:30 Temperature Pulse Rate 78 84 82 Respiratory 16 15 14 Rate Blood Pressure 145/69 (mmHg) O2 Sat by Pulse 97 99 97 Oximetry 09/24/16 09/24/16 09/24/16 06:45 07:00 07:15 Temperature Pulse Rate 75 70 69 Respiratory 22 19 16 Rate Blood Pressure 125/52 (mmHg) O2 Sat by Pulse 98 98 98 Oximetry 09/24/16 09/24/16 09/24/16 07:30 07:43 07:45 Temperature Pulse Rate 72 68 Respiratory 19 16 16 Rate Blood Pressure (mmHg) O2 Sat by Pulse 99 98 Oximetry 09/24/16 09/24/16 09/24/16 07:53 08:00 08:15 Temperature 98.3 F Pulse Rate 65 67 68 Respiratory 17 13 Rate Blood Pressure 130/45 109/46 (mmHg) O2 Sat by Pulse 98 97 98 Oximetry 09/24/16 09/24/16 09/24/16 08:28 08:30 08:45 Temperature Pulse Rate 69 64 Respiratory Rate Blood Pressure 138/45 (mmHg) O2 Sat by Pulse 100 98 Oximetry 09/24/16 09/24/16 09/24/16 09:00 09:57 10:00 Temperature Pulse Rate 73 65 Respiratory 15 Rate Blood Pressure 144/43 (mmHg) O2 Sat by Pulse 100 96 Oximetry Oxygen Devices in Use Now: None Appearance: Alert, partly up in ICU bed. In good spirits. Looks comfortable. Eyes: No Scleral Icterus Ears/Nose/Mouth/Throat: Clear Oropharnyx, Mucous Membranes Moist Neck: NL Appearance and Movements; NL JVP, No Thyroid Enlargement, Masses Respiratory: Symmetrical Chest Expansion and Respiratory Effort, Clear to Auscultation, Clear to Percussion Cardiovascular: NL Sounds; No Murmurs; No JVD, RRR, No Edema, - Skin: No Rash or Ulcers, No Nodules or Sclerosis Neurological: Alert and Oriented x 3, NL Sensation Result Diagrams: 09/24/16 05:37 09/24/16 05:37 Additional Lab and Data: Lab Results 09/22/16 09/22/16 09/22/16 Range/Units 22:05 22:05 22:05 WBC 13.2 H (3.5-10.8) 10^3/ul RBC 4.74 (4.0-5.4) 10^6/ul Hgb 14.1 (12.0-16.0) g/dl Hct 43 (35-47) % MCV 91 (80-97) fL MCH 30 (27-31) pg MCHC 33 (31-36) g/dl RDW 13 (10.5-15) % Plt Count 227 (150-450) 10^3/ul MPV 9 (7.4-10.4) um3 Neut % (Auto) 63.9 (38-83) % Lymph % (Auto) 25.8 (25-47) % [place] % (Auto) 7.2 (1-9) % Eos % (Auto) 2.1 (0-6) % Baso % (Auto) 1.0 (0-2) % Absolute Neuts (auto) 8.5 H (1.5-7.7) 10^3/ul Absolute Lymphs (auto) 3.4 (1.0-4.8) 10^3/ul Absolute Monos (auto) 0.9 H (0-0.8) 10^3/ul Absolute Eos (auto) 0.3 (0-0.6) 10^3/ul Absolute Basos (auto) 0.1 (0-0.2) 10^3/ul Absolute Nucleated RBC 0 10^3/ul Nucleated RBC % 0 Sodium 134 (133-145) mmol/L Potassium 4.4 (3.5-5.0) mmol/L Chloride 100 L (101-111) mmol/L Carbon Dioxide 28 (22-32) mmol/L Anion Gap 6 (2-11) mmol/L BUN 19 (6-24) mg/dL Creatinine 1.12 H (0.51-0.95) mg/dL Est GFR ( Amer) 61.7 (>60) Est GFR (Non-Af Amer) 48.0 (>60) BUN/Creatinine Ratio 17.0 (8-20) Glucose 114 H (70-100) mg/dL Lactic Acid 1.5 (0.5-2.0) mmol/L Calcium 9.8 (8.6-10.3) mg/dL Total Bilirubin 0.30 (0.2-1.0) mg/dL AST 20 (13-39) U/L ALT 18 (7-52) U/L Alkaline Phosphatase 84 (34-104) U/L Troponin I 0.01 (<0.04) ng/mL Total Protein 7.6 (6.4-8.9) g/dL Albumin 4.4 (3.2-5.2) g/dL Globulin 3.2 (2-4) g/dL Albumin/Globulin Ratio 1.4 (1-3) Microbiology and Other Data: Microbiology 09/23/16 03:10 Nasal Screen MRSA (PCR)([facility]) - Final Nasal Mrsa Negative Assess/Plan/Problems-Billing Assessment: - Patient Problems (1) ACS (acute coronary syndrome) Status: Acute Code(s): I24.9 - ACUTE ISCHEMIC HEART DISEASE, UNSPECIFIED SNOMED Code(s): 878169179 Comment: Stable. BP low. Dr. Timmons recommended bolus of 250 ml NS, stop lisinopril. If patient ambulatory and feeling well with adequate BP after lunch will discharge. Patient states she had muscle aches on simvastatin 40 mg and chanaged to taking only a half tablet daily. I told her to continue on 20 mg simvastain daily until she sees Dr. Timmons again. (2) Diabetes Status: Acute Code(s): E11.9 - TYPE 2 DIABETES MELLITUS WITHOUT COMPLICATIONS SNOMED Code(s): 97208701 Comment: Resume glimepiride at home. (3) HTN (hypertension) Status: Acute Code(s): I10 - ESSENTIAL (PRIMARY) HYPERTENSION SNOMED Code(s) : 30452201 Comment: Continue new dose metoprolol. Continue amlodipine. D/C lisinopril due to low BP. Dr. Timmons reviewed the CTA of the abdomen and felt that it was adequate to r/o renal artery stenosis as a contributing cause of her HTN.
[2016-09-24 14:46] VITALS: BP 108/58
== END 2016-09-24 16:30 | disposition home or self-care (01) | DRG 281 ==
LOC: ED 21:38 → MEDTELE 09-23 01:33 → OBSVTOIN 09-23 02:00 → ICU 09-23 02:25
PROVIDERS: ADMIT Hospitalist; ATTEND Internal Medicine
PROC: 4A023N7 Measurement of Cardiac Sampling and Pressure, Left Heart, Percutaneous Approach (ICD-10-PCS; principal; 2016-09-24)
PROC: B210YZZ Fluoroscopy of Single Coronary Artery using Other Contrast (ICD-10-PCS; 2016-09-24)
PROC: B213YZZ Fluoroscopy of Multiple Coronary Artery Bypass Grafts using Other Contrast (ICD-10-PCS; 2016-09-24)
PROC: B215YZZ Fluoroscopy of Left Heart using Other Contrast (ICD-10-PCS; 2016-09-24)
PROC: 4A033BC Measurement of Arterial Pressure, Coronary, Percutaneous Approach (ICD-10-PCS; 2016-09-24)
DX: I21.4 Non-ST elevation (NSTEMI) myocardial infarction (principal); I25.729 Atherosclerosis of autologous artery coronary artery bypass graft(s) with unspecified angina pectoris; I11.9 Hypertensive heart disease without heart failure; I25.719 Atherosclerosis of autologous vein coronary artery bypass graft(s) with unspecified angina pectoris; E11.9 Type 2 diabetes mellitus without complications; I24.9 Acute ischemic heart disease, unspecified; I73.89 Other specified peripheral vascular diseases; E78.5 Hyperlipidemia, unspecified; E66.3 Overweight; Z95.1 Presence of aortocoronary bypass graft; Z95.5 Presence of coronary angioplasty implant and graft; Z79.82 Long term (current) use of aspirin; Z79.84 Long term (current) use of oral hypoglycemic drugs; Z79.899 Other long term (current) drug therapy; Z87.891 Personal history of nicotine dependence; Z83.3 Family history of diabetes mellitus; Z82.49 Family history of ischemic heart disease and other diseases of the circulatory system; Z68.29 Body mass index [BMI] 29.0-29.9, adult
CPT/HCPCS: 36415; 71010; 71275; 74174; 80053; 80061; 83036; 83605; 84484; 85025; 85027; 87086; 87641; 93005; 93458; A9270-GY; C1887; J0153; J1644; J2001; J2250; J2405; J3010; Q9967

== ENCOUNTER 2019-08-14 16:00 | Inpatient (IN) | payer MEDICARE, MEDICAID ==
--- OUTSIDE RECORDS SUMMARY | 2019-08-14 21:55 | XMS REPORT | Continuity of Care Document ---
:1945 External Reference #:[id number] Author Name Toi Whittington M.D. Address [address] [place] [address] Care Team Providers Name Role Phone Orlando Bronson MD - Internal Care Team Information Unit Trust Manager Medicine Problems Active Problems Provider Date Coronary arteriosclerosis Herminio Mendoza MD, PhD Onset: 09/05/2010 Hyperlipidemia Herminio Mendoza MD, PhD Onset: 09/05/2010 Peripheral vascular disease Herminio Mendoza MD, PhD Onset: 09/05/2010 Tobacco user Herminio Mendoza MD, PhD Onset: 09/05/2010 Dyspnea Herminio Mendoza MD, PhD Onset: 09/05/2010 Cardiovascular symptoms Herminio Mendoza MD, PhD Onset: 09/05/2010 Benign essential hypertension Herminio Mendoza MD, PhD Onset: 09/05/2010 Carcinoma in situ of breast Noé Wilson MD Onset: 03/16/2014 Hematuria syndrome Toi Whittington M.D. Onset: 07/06/2019 Personal history of primary malignant Noé Wilson MD Onset: 09/26/2014 neoplasm of breast Social History Type Date Description Comments Sex Unknown Tobacco Use Start: Unknown Currently smokes 1-5 Cigarettes Daily Cigarette Use Pack Years - 50 ETOH Use Denies alcohol use Tobacco Use Start: Unknown Yes Recreational Drug Use Denies Drug Use Tobacco Use Start: Unknown End: Patient is a former smoker Unknown Smoking Status Reviewed: 06/07/19 Patient is a former smoker Exercise Type/Frequency Does housework daily Exercise Type/Frequency Exercises daily Allergies, Adverse Reactions, Alerts Description No Known Drug Allergies Medications Active Medications SIG Qnty Indications Ordering Provider Date Aspirin 1 by mouth every 431 Dianelys Parra 07/04/2014 81mg Tablets day [place] Wilcox, [employer] 414.01 Nitrostat 1 tab sl q 5 min x3 25tabs ParraDianelys 0.4mg Tablets Sub chest pain [place]IN Wilcox, [employer] Simvastatin 1 po qd 90tabs Unknown 20mg Tablets Famotidine 1 po bid prn Unknown 20mg Tablets Glimepiride po qd Unknown 1mg Tablets Metoprolol Succinate ER 1 by mouth every 30tabs Unknown 100mg day Tablets ER 24HR Clopidogrel Bisulfate 1 by mouth every Unknown 75mg day Tablets Amlodipine Besylate 1 by mouth every Unknown 2.5mg day Tablets Alprazolam 1 tab as needed Unknown 0.25mg Tablets Immunizations Description No Information Available Vital Signs Date Vital Result Comment 07/06/2019 8:51am BP Systolic 151 mmHg BP Diastolic 75 mmHg Body Temperature 97.6 F Heart Rate 80 /min Respiratory Rate 17 /min Height 64 inches 5'4" Weight 175.00 lb Pain Level 0 BMI (Body Mass Index) 30.0 kg/m2 BSA (Body Surface Area) 1.85 m2 [place] body weight in kilograms 54 kg O2 % BldC Oximetry 98 % 06/30/2014 11:40am BP Systolic Sitting Left Arm 140 mmHg BP Diastolic Sitting Left Arm 82 mmHg Heart Rate 100 /min Respiratory Rate 16 /min Height 64 inches 5'4" Weight 172.00 lb BMI (Body Mass Index) 29.5 kg/m2 BSA (Body Surface Area) 1.83 m2 Results Test Acquired Date Facility Test Result H/L Range Note Urine Dipstick 07/06/2019 [facility] Color yellow Yellow Ua Clarity clear Clear Ua Leuko neg Negative Ua Nitrite neg Negative Ua Urobilinogen 0.2 0.2 - 1.0 E.U./dL Ua Protein neg Negative Ua PH 5.5 Low 6.5-7.5 Ua Blood 10 High Negative Ua Specific [place] 1.030 1.010-1.030 Ua Ketones neg Negative Ua Bilirubin neg Negative Ua Glucose neg Negative Procedures Date Code Description Status 09/22/2014 [id number] Mammogram Completed 01/20/2013 [id number] Mammogram Completed 01/13/2013 [id number] Mammogram Completed 01/06/2013 [id number] Mammogram Completed Medical Devices Description No Information Available Encounters Type Date Location Provider Dx Diagnosis Office Visit 07/06/2019 Urology Toi Whittington, R31.9 Hematuria, unspecified 8:45a M.DRosibel Assessments Date Code Description Provider 07/06/2019 R31.9 Hematuria, unspecified Toi Whittington M.D. Plan of Treatment Future Appointment(s):07/06/2020 11:00 am - Toi Whittington M.D. at [id number] - Toi Whittington M.D.R31.9 Hematuria, unspecifiedNew Labs:Ua RFX Micro & Culture II, Ordered: 07/06/19Comments:Urine will be sent today for urinalysis. If the patient does have evidence of microscopic hematuriashe will need a workup and I discussed this with her. We'll also check a urine for protein as the patient complains of foaming at home. Meanwhile we'll obtain her records from her urologist and I'll plan to see the patient back in 1 year. Functional Status Functional Condition Comment Date Status Independent with all ADL's Active Contacts Active Independent with all IADL's Active Complete Dentures Active Complete lower and upper and lower dentures Active Mental Status Description No Information Available Referrals Description No Information Available
[2019-08-14] MEDS ORDERED: Ondansetron INJ* 2 MG/ML VIAL IV PRN (22:52)
[2019-08-14] MEDS ORDERED: Metoprolol Tartrate IV* 1 MG/ML 5 ML VIAL IV PRN (22:56)
[2019-08-14] MEDS ORDERED: Dextrose 50% Syringe 50 ML* 25 GM/50 ML SYRINGE IV PUSH PRN (22:57)
[2019-08-14 23:21] LABS: ABS Basophils 0.1 10^3/ul (0-0.2); ABS Eosinophils 0.1 10^3/ul (0-0.6); ABS Monocytes 0.9 10^3/ul (0-0.8); ABS Neutrophils 13.1 10^3/ul (1.5-7.7); Eosinophil % 0.4 %; Hematocrit 32 % (35-47); Hemoglobin 10.7 g/dL (12.0-16.0); Lymphocyte % 21.9 %; Mean Corpuscular HGB Conc 34 g/dL (31-36); Mean Corpuscular Hemoglobin 30 pg (27-31); Mean Corpuscular Volume 89 fL (80-97); Mean Platelet Volume 8.9 fL (7.4-10.4); Platelet Count 192 10^3/uL (150-450); Red Blood Count 3.56 10^6 /uL (3.70-4.87); Red Cell Distribution Width 14 % (10-15); White Blood Count 18.3 10^3/uL (3.5-10.8)
[2019-08-14] MEDS: NS 0.9% 1000 ML** 1,000 ML IV SCH (23:21)
[2019-08-14 23:27] LABS: INR 1.07 (0.82-1.09)
[2019-08-14 23:37] LABS: Anion Gap 7 mmol/L (2-11); BUN/Creatinine Ratio 32.2 (8-20); Blood Urea Nitrogen 29 mg/dL (6-24); CO2 Carbon Dioxide 23 mmol/L (22-32); Calcium 8.9 mg/dL (8.6-10.3); Chloride 107 mmol/L (101-111); EGFR African American 74.1 (>60); EGFR Non-African American 61.2 (>60); Glucose 101 mg/dL (70-100); Magnesium 1.9 mg/dL (1.9-2.7); Potassium 3.9 mmol/L (3.5-5.0); Sodium 137 mmol/L (135-145)
[2019-08-14 23:42] LABS: Troponin I 0.06 ng/mL (<0.03)
[2019-08-15] MEDS: Pantoprazole* 80 mg IN NS 80 MG/250 ML BAG IV SCH ×3 (00:01→21:02)
[2019-08-15] MEDS ORDERED: Iodixanol* (CONTRAST) 320 MG/ML 100 ML SDV IV ONE (00:58)
[2019-08-15 02:31] LABS: Troponin I 0.06 ng/mL (<0.03)
[2019-08-15] MEDS ORDERED: Piperacillin/Tazobac ADVAN(*) 3.375 GM in NS 0.9% 100 ML* 100 ML IVPB ONE (02:47)
[2019-08-15] MEDS ORDERED: Zosyn per Pharmacy* NOTE FOLLOW UP SCH (03:00)
[2019-08-15 03:37] LABS: Urine Appearance Clear; Urine Bilirubin Negative (Negative); Urine Blood Negative (Negative); Urine Color Straw; Urine Glucose Negative (Negative); Urine Ketones Negative (Negative); Urine Nitrite Negative (Negative); Urine Protein Negative (Negative); Urine Specific Gravity 1.033 (1.010-1.030); Urine Urobilinogen Negative (Negative)
--- NOTE | 2019-08-15 03:48 | HP ---
ADMISSION HISTORY AND PHYSICAL: DATE OF ADMISSION: 08/14/19 PRIMARY CARE PHYSICIAN: Dr. Bronson. PROVIDER: Janine Cortes NP ATTENDING PHYSICIAN: Dr. Dent.* (DICTATED BY JANINE CORTES NP) CHIEF COMPLAINT: Black stool and black vomit. HISTORY OF PRESENT ILLNESS: This is a 74-year-old female with a past medical history significant for CAD, with stenting x6 and CABG x3; diabetes, type 2; hypertension, who came to the emergency room in [place] on 08/14/19 and was then transferred to [facility] for GI followup after reports of blood in her stool and vomit starting yesterday morning, she woke up and vomited black coffee-ground emesis. She did not vomit the rest of the day. She also passed a black stool and then again this morning, she vomited this a.m. right after waking up and stated it looked like molasses. She also developed lightheadedness, shortness of breath with minimal exertion, and retrosternal discomfort going through to her back. Starting about 1-1/2 weeks ago, she was coughing up yellow. She took azithromycin and her last dose was Friday and for the past couple of days , she has been feeling chilled. She also reported having a low energy level for the past month. In the emergency room in [place], digital rectal exam was performed. Stool came back positive for blood. She received 2 units of packed red blood cells and was transferred to [facility] as there was no GI on-call over there. Upon arriving to the floor, she was a direct admit in to room 431. Labs were drawn. Abdomen and pelvis CT was performed. PAST MEDICAL HISTORY: Coronary artery disease, with stenting x6, CABG x3; diabetes, type 2; hypertension; hyperlipidemia; GERD; anxiety; frontal lobe hemorrhage; IA x4. PAST SURGICAL HISTORY: Bilateral carotid endarterectomy, left breast lumpectomy , salpingectomy, oophorectomy, bladder tumor removal. HOME MEDICATIONS: 1. Aspirin 81 mg p.o. daily. 2. Furosemide 20 mg p.o. daily p.r.n. 3. Nitroglycerin 0.4 mg sublingually q.5 minutes p.r.n. 4. Alprazolam 0.5 mg p.o. at bedtime. 5. Clopidogrel 75 mg p.o. daily. 6. Simvastatin 20 mg p.o. q.1700. 7. Metoprolol succinate 100 mg p.o. b.i.d. 8. Glimepiride 0.5 mg p.o. daily. 9. Amlodipine 2.5 mg p.o. daily. 10. Famotidine 20 mg p.o. b.i.d. p.r.n. ALLERGIES: None. FAMILY HISTORY: Positive for atherosclerosis throughout her family. Her sister of GI bleed. SOCIAL HISTORY: She smokes 3 or 4 cigarettes a month. Denies any EtOH or recreational substance use. She is retired. 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 Has 3 children. REVIEW OF SYSTEMS: A 12-point system review was performed, which was positive for dark stools and vomit, shortness of breath, retrosternal chest discomfort, chills, and fatigue. Negative for palpitations, abdominal pain, or issues voiding. PHYSICAL EXAMINATION GENERAL: This is a well-developed older woman, sitting up in the bed, in no acute distress. VITAL SIGNS: 98.1 Fahrenheit, 99 pulse, 18 respirations, 99% oxygen on room air , 154/75 blood pressure. HEENT: Conjunctive pink and moist. PERRLA. EOMs intact. Oropharynx clear. Mucous membranes moist. NECK: Supple. LUNGS: Sounds clear throughout bilaterally on room air. CARDIAC: S1, S2 present. Heart rate regular. No murmurs, gallops, or rubs appreciated. +1 pitting edema to bilateral lower extremities. ABDOMEN: Soft, nondistended, tender in the left lower quadrant with positive bowel sounds x4. MUSCULOSKELETAL: No clubbing or cyanosis of the digits. Able to move all extremities. NEUROLOGIC: Sensation intact to light touch. No focal deficits appreciated. PSYCH: She is alert and oriented x4. Thought content organized. SKIN: Intact with no rashes or lesions appreciated. DIAGNOSTIC STUDIES/LAB DATA: Abdomen and pelvis CT showed no acute findings. Pertinent lab data: WBC is 18.3, RBC 3.56, hemoglobin 10.7, hematocrit 32. BUN 29, BUN-creatinine ratio 32.2, glucose is 101. Troponin 0.06. B- natriuretic peptide 287. ASSESSMENT AND PLAN: My impression is this is a 74-year-old female with a past medical history significant for myocardial infarction x4; coronary artery disease, coronary artery bypass graft; diabetes, type 2; hypertension, who was a direct admit to [facility] on 08/14/19 for gastrointestinal bleed. 1. Gastrointestinal bleed. Due to the dark nature of both her stool and vomit , I suspect she may have a mixture of an upper and lower gastrointestinal bleed. She has no history of liver disease. Denies any nonsteroidal anti- inflammatory drug use. We will contact GI in the a.m. for possible scoping. We will keep the patient n.p.o. and hydrate with normal saline. She already received 2 units of blood in the [place] [facility] and there is no need to transfuse at this point in time, though we will trend H and Hs every 6 hours. She has been placed on Protonix drip. All oral medications held except for her aspirin. 2. Possible new onset of congestive heart failure. She had 1+ positive pitting edema to her bilateral lower extremities. Due to the edema and the fact that her B- natriuretic peptide is slightly elevated, an echocardiogram has been ordered. She has multiple risk factors for developing congestive heart failure, but has not been diagnosed with this previously. 3. Coronary artery disease. Because of her numerous stents and her triple CABG , her cardiac risk is high, so therefore I will continue her baby aspirin despite her gastrointestinal bleed. I have also converted her metoprolol to IV and her Plavix has been held. 4. Hypertension. Normally, she takes amlodipine and as needed Lasix for her blood pressure. Both medications will be held for the moment just to decrease the amount of pills she is taking; however, should her blood pressure become increasingly elevated, I would be inclined to order IV Lasix. 5. Hyperlipidemia. I will hold her home simvastatin dose for now. 6. Diabetes, type 2. I will hold her glimepiride. Fingersticks will be a.c. with sliding scale insulin coverage. 7. DVT prophylaxis. Anticoagulation is contraindicated at this time. 8. Code status is full code. 9. Disposition is to admit OBV to [address] [place] [address]. 10. Condition is guarded. TIME SPENT: Time spent on the patient is about 60 minutes with 30 of that spent [id number]. [id number]/[facility] #: [id number] [facility]
[2019-08-15 05:17] LABS: Urine Bacteria Absent (Absent); Urine Red Blood Cell Trace(0-2/hpf) (Absent); Urine Squamous Epithelial Cell Present (Absent); Urine White Blood Cell 1+(6-10/hpf) (Absent)
[2019-08-15] MEDS: ZOSYN 3.375 GM Q8H per EXTENDED INFUSION IVPB SCH ×6 (07:01→22:58)
[2019-08-15] MEDS: Insulin LISPRO* 1 UNITS UNIT SUBCUT SCH ×3 (07:03→17:28)
[2019-08-15 07:21] LABS: ABS Basophils 0.1 10^3/ul (0-0.2); ABS Eosinophils 0.1 10^3/ul (0-0.6); ABS Lymphocytes 3.3 10^3/ul (1.0-4.8); ABS Monocytes 0.7 10^3/ul (0-0.8); ABS Neutrophils 8.8 10^3/ul (1.5-7.7); Eosinophil % 0.7 %; Hematocrit 29 % (35-47); Hemoglobin 9.7 g/dL (12.0-16.0); Lymphocyte % 25.3 %; Mean Corpuscular HGB Conc 34 g/dL (31-36); Mean Corpuscular Hemoglobin 31 pg (27-31); Mean Corpuscular Volume 90 fL (80-97); Mean Platelet Volume 8.9 fL (7.4-10.4); Platelet Count 163 10^3/uL (150-450); Red Blood Count 3.17 10^6 /uL (3.70-4.87); Red Cell Distribution Width 13 % (10-15); White Blood Count 12.9 10^3/uL (3.5-10.8)
[2019-08-15 07:38] LABS: BUN/Creatinine Ratio 25.6 (8-20); Calcium 8.2 mg/dL (8.6-10.3); EGFR African American 74.1 (>60); EGFR Non-African American 61.2 (>60); Potassium 3.8 mmol/L (3.5-5.0)
--- NOTE | 2019-08-15 08:03 | PN ---
Progress Note - Progress Note Date of Service: 08/15/19 Note: brief note; full dictated note to follow 74 yo female with CAD; on ASA; melena and coffee ground vomiting; s/p 2 U PRBC at [place]; now, better, no vomiting, no bm, sl abd gurgle VSS bun better, hgb 9.4 UGI bleed, IV protonix, EGD tomorrow unless changes, ok to eat, no asa Rocky Perdomo MD [facility]
[2019-08-15] MEDS ORDERED: Aspirin 81 mg CHEW TAB* 81 MG TAB.CHEW PO SCH (09:00)
[2019-08-15] MEDS: Metoprolol Succinate XL TAB* 100 MG PO SCH ×2 (10:31→21:02)
[2019-08-15] MEDS: NS 0.9% 1000 ML** 1,000 ML IV SCH ×2 (11:03→21:07)
--- NOTE | 2019-08-15 11:57 | ECHO ---
*[facility]* [place] [address] Fax #: [phone] Transthoracic Echocardiogram Patient: Lise Amaro : 1945 Study Date: 08/15/2019 Age: 74 Gender: F HR: 86 bpm Height: 64 in /162.6 cm BSA: 1.83 m^2 Weight: 169.6 lb /77.1 kg BMI: 29.2 kg/m^2 *Drafter Cartographic: * Aline Young *Referring Physician: * Cassie Polk *Reading Physician: * Brian Gant MD Indications: Edema. History: Coronary artery disease. Risk factors: Hypertension. Dyslipidemia. Labs, prior tests, procedures, and surgery: Coronary artery bypass grafting. Conclusions Summary: - Left ventricle: The cavity size is mildly reduced. Systolic function is hyperdynamic. The estimated ejection fraction is 65-70%, by visual assessment. Wall motion is normal; there are no regional wall motion abnormalities. - Normal cardiac chamber sizes. - Functionally benign heart valves. - Pulmonary arteries: Systolic pressure is moderately increased, estimated to be 50 mm Hg. - Since the prior echocardiogram completed 04/23/16, pertinent changes are prior subtle hypokinesis of the upper lateral wall described and prior no pulmonary hypertension noted. Study data: Transthoracic echocardiogram. Procedure: Transthoracic echocardiography was performed. Image quality was good. Complete 2D, spectral Doppler, and color flow Doppler. Location: Bedside. Patient status: Inpatient. Patient room number: 431. Rhythm: Normal sinus rhythm. Findings Left ventricle: The cavity size is mildly reduced. Systolic function is hyperdynamic. The estimated ejection fraction is 65-70%, by visual assessment. Wall motion is normal; there are no regional wall motion abnormalities. Left ventricular diastolic function parameters are normal. Right ventricle: The cavity size is normal. Systolic function is normal. Left atrium: The atrium is normal in size. Right atrium: The atrium is normal in size. Mitral valve: Appears moderately calcified and mild to moderately thickened. There is trace to mild regurgitation. Aortic valve: The valve is trileaflet. The leaflets are mildly calcified. There is no evidence of stenosis. There is no significant regurgitation. Tricuspid valve: The valve is structurally normal. There is trace regurgitation. Pulmonic valve: The valve is structurally normal. There is no evidence of stenosis. There is no significant regurgitation. Aorta: The aortic root appears normal. The aortic arch appears normal. Normal ascending aortic size. Pericardium: There is no significant pericardial effusion. Pulmonary arteries: Systolic pressure is moderately increased, estimated to be 50 mm Hg. Systemic veins: Inferior vena cava: The vessel is normal in size. There is (>= 50%) respiratory change in the IVC dimension. Pulmonary veins: The Pulmonary veins appear normal. Measurements Left ventricle Value Ref Aortic valve continued Value Ref GILBERTO, LAX (L) 3.6 cm 3.8 - 5.2 Mean grad, S 7.0 mm Hg ----- ESD, LAX 2.5 cm 2.2 - 3.5 Peak grad, S 11.0 mm Hg ----- FS, LAX 29 % 27 - 45 STACIE, VTI 2.18 cm^2 ----- PW, ED, LAX (H) 1.2 cm 0.6 - 0.9 STACIE, Vmax 2.23 cm^2 ----- E', lat ana, TDI (L) 6.4 cm/sec >=10.0 E/e', lat ana, 22 Mitral valve Value R ef TDI Peak E 1.42 m/sec ----- Peak A 0.89 m/sec ----- LVOT Value Ref Decel time 180 ms ----- Diam, S 2.00 cm Peak grad, D 8.1 mm Hg ----- Area 3.1 cm^2 Peak E/A ratio 1.6 ----- Peak keiry, S 1.18 m/sec Peak grad, S 6 mm Hg Pulmonic valve Value Ref Mean grad, S 3 mm Hg Peak v, S 0.78 m/sec ----- SV 84 ml Peak grad, S 2.0 mm Hg ----- Ventricular septum Value Ref Tricuspid valve Value Ref IVS, ED (H) 1.3 cm 0.6 - 0.9 TR peak v (H) 3.35 m/sec <=2 .8 Peak RV-RA grad, S 45 mm Hg ----- Right ventricle Value Ref Max TR keiry 3.28 m/sec ----- GILBERTO, LAX 2.8 cm GILBERTO minor ax, 2.5 cm 1.9 - 3.5 Aortic root Value Ref A4C mid Root diam 3.0 cm <4. 0 Left atrium Value Ref Ascending aorta Value Ref AP dim, ES 3.60 cm 2.70 - AAo AP diam, S 3.0 cm ----- 3.80 ML dim, A4C 4.2 cm Aortic arch Value Ref SI dim, A4C 5.3 cm Arch diam 2.3 cm ----- Vol/bsa, ES, 1-p 18 ml/m^2 11 - 40 A4C Decending aorta Value Ref Dominick peak keiry 0.97 m/sec ----- Right atrium Value Ref SI dim, ES 4.8 cm 3.4 - 5.3 Inferior vena cava Value Ref ML dim, ES, A4C 3.6 cm 2.6 - 4.4 Diam 2.3 cm ----- SI dim, ES, A4C 4.8 cm 3.4 - 5.3 Aortic valve Value Ref Peak v, S 1.66 m/sec VTI, S 38.7 cm Legend: (L) and (H) tarik values outside specified reference range. Prepared and electronically signed by Brian Gant MD 08/15/2019 11:56
--- NOTE | 2019-08-15 13:42 | PN ---
Subjective Date of Service: 08/15/19 Interval History: Ms. Amaro is feeling a little better today, but does c/o malaise. She has not had any further episodes of diarrhea or vomiting. She does feel like she will need to have a BM later today. Denies CP, SOB, dizziness. No concerns from nursing. Family History: Unchanged from Admission Social History: Unchanged from Admission Past Medical History: Unchanged from Admission Objective Active Medications: Acetaminophen (Tylenol Tab*) 650 mg PO Q4H PRN MILD PAIN or TEMP > 100.4 Dextrose (D50w Syringe 50 Ml*) 12.5 gm IV PUSH .FOR FS < 60 - SS PRN FS < 60 Pantoprazole Sodium (Protonix Iv Bag*) 80 mg in 250 mls @ 25 mls/hr IV Q10H JOSE Sodium Chloride (Ns 0.9% 1000 Ml) 1,000 mls @ 100 mls/hr IV PER RATE JOSE Piperacillin Sod/Tazobactam (Sod 3.375 gm/ Sodium Chloride) 100 mls @ 25 mls/ hr IVPB Q8H JOSE Insulin Human Lispro (Humalog*) 0 units SUBCUT AC JOSE; Protocol Metoprolol Succinate (Toprol Xl Tab*) 100 mg PO BID JOSE Ondansetron HCl (Zofran Inj*) 4 mg IV Q4H PRN NAUSEA/VOMITING Vital Signs - 8 hr 08/15/19 08/15/19 08/15/19 07:00 07:15 10:59 Temperature 97.7 F 97 F Pulse Rate 85 94 Respiratory 18 16 16 Rate Blood Pressure 122/58 146/49 (mmHg) O2 Sat by Pulse 98 99 Oximetry Oxygen Devices in Use Now: None Appearance: Elderly female lying in bed in NAD Ears/Nose/Mouth/Throat: Mucous Membranes Moist Neck: NL Appearance and Movements; NL JVP, Trachea Midline Respiratory: Symmetrical Chest Expansion and Respiratory Effort, Clear to Auscultation Cardiovascular: NL Sounds; No Murmurs; No JVD, RRR Abdominal: NL Sounds; No Tenderness; No Distention Extremities: - - +1 pitting BLE Neurological: Alert and Oriented x 3 Lines/Tubes/Other Access: Clean, Dry and Intact Peripheral IV Nutrition: Taking PO's Result Diagrams: 08/15/19 06:31 08/15/19 06:31 Assess/Plan/Problems-Billing Assessment: Ms. Amaro is a 74 yo F with PMH of CAD with s/p stents and CABG, DM2, HTN, HLD, GERD, anxiety, frontal lobe hemorrhage; presented to [place] ED with c/o black stool and emesis, subsequently transfused 2 units PRBC and transferred to [facility] for GI consult. - Patient Problems (1) GI bleed Code(s): K92.2 - GASTROINTESTINAL HEMORRHAGE, UNSPECIFIED Comment: - Presented with c/o bloody stool and coffee-ground emesis - Transfused 2 units PRBC at [place] - Appreciate GI consult; plan for EGD tomorrow - NPO after midnight - Continue pantoprazole drip (2) Acute blood loss anemia Code(s): D62 - ACUTE POSTHEMORRHAGIC ANEMIA Comment: - Secondary to GI bleed; no evidence of chronic anemia - Trend H&H - Transfuse PRBC for Hgb <7 (3) Leukocytosis Code(s): D72.829 - ELEVATED WHITE BLOOD CELL COUNT, UNSPECIFIED Comment: - No other signs of infection - Possibly GI related, but this may just be reactive - Continue Zosyn for now (4) CAD (coronary artery disease) Code(s): I25.10 - ATHSCL HEART DISEASE OF [place] CORONARY ARTERY W/O ANG PCTRS Comment: - Patient is on lifelong DAPT for stents, but at this point, GI bleed poses a greater risk than [place], so will hold aspirin and Plavix at this time - DAPT will need to be restarted KATE - Continue metoprolol (5) Peripheral edema Code(s): R60.9 - EDEMA, UNSPECIFIED Comment: - Noted to have +1-2 pitting on admission - Echo unremarkable; no evidence of CHF - Patient typically takes furosemide PRN at home for LE edema; will hold furosemide at this point d/t GI bleed and resume once stable (6) Diabetes Code(s): E11.9 - TYPE 2 DIABETES MELLITUS WITHOUT COMPLICATIONS Comment: - Continue Lispro SS (7) HTN (hypertension) Code(s): I10 - ESSENTIAL (PRIMARY) HYPERTENSION Comment: - Continue metoprolol (8) DVT prophylaxis Code(s): Z29.9 - ENCOUNTER FOR PROPHYLACTIC MEASURES, UNSPECIFIED Comment: - SCDs only in the setting of GI bleed (9) DNR (do not resuscitate) Comment: Status and Disposition: Inpatient. EGD Friday. Anticipate d/c home when medically stable. Attending: Dima Zaman
[2019-08-15] MEDS: ALPRAZolam TAB* 0.25 MG PO PRN (21:06)
[2019-08-15] MEDS: Acetaminophen TAB* 325 MG PO PRN (22:05)
[2019-08-16 05:47] LABS: ABS Eosinophils 0.2 10^3/ul (0-0.6); ABS Lymphocytes 2.5 10^3/ul (1.0-4.8); ABS Monocytes 0.6 10^3/ul (0-0.8); ABS Neutrophils 6.8 10^3/ul (1.5-7.7); Hematocrit 26 % (35-47); Mean Corpuscular HGB Conc 35 g/dL (31-36); Mean Corpuscular Hemoglobin 32 pg (27-31); Mean Corpuscular Volume 91 fL (80-97); Mean Platelet Volume 9.4 fL (7.4-10.4); Platelet Count 168 10^3/uL (150-450); Red Blood Count 2.87 10^6 /uL (3.70-4.87); Red Cell Distribution Width 14 % (10-15); White Blood Count 10.2 10^3/uL (3.5-10.8)
[2019-08-16 06:03] LABS: BUN/Creatinine Ratio 17.7 (8-20); Calcium 8.5 mg/dL (8.6-10.3); EGFR Non-African American 47.1 (>60); Potassium 4.2 mmol/L (3.5-5.0)
[2019-08-16] MEDS: ZOSYN 3.375 GM Q8H per EXTENDED INFUSION IVPB SCH ×6 (06:45→22:48)
[2019-08-16] MEDS: Pantoprazole* 80 mg IN NS 80 MG/250 ML BAG IV SCH ×2 (06:45→15:40)
[2019-08-16] MEDS: Insulin LISPRO* 1 UNITS UNIT SUBCUT SCH ×3 (07:33→16:53)
--- NOTE | 2019-08-16 08:44 | CONS ---
CONSULTATION REPORT: DATE OF CONSULT: 08/15/19 INDICATION: Anemia. NARRATIVE: Mrs. Amaro is a pleasant 74-year-old female who states that she had been doing relatively well up until Friday of this past week. At that time, she started vomiting and it was a blackish typ e of molasses vomit and then she started having bowel movements that looked like molasses also. She presented to [facility] on Friday. Unfortunately, they do not have any GI co verage at [facility] and thus they called [facility] to transfer her to our facility. The transfer was accepted. She arrived extremely late at around 11 p.m. Friday. She did receive 2 units of blood at [facility]. She states that her vomiting has resolved. She has not had a bowel movement since she came to the hospital either. She has been having generalized abdominal discomfort, some lightheadedness, and shortness of breath. Her pain was generalized, but more pronounced in the epigastrium. It did radiate through to the back. She does take an aspirin everyday; however, denies any other nonsteroidals. She has had a colonoscopy, but ne miriam an upper endoscopy. PAST MEDICAL HISTORY: Significant for significant coronary artery disease, multiple stents, multiple CABGs, diabetes, hypertension, hyperlipidemia, GERD, anxiety, frontal lobe hemorrhage. PAST SURGICAL HISTORY: Includes endarterectomy, lumpectomy, salpingectomy, oophorectomy. MEDICATIONS AT HOME: Include: 1. Glimepiride. 2. Metoprolol. 3. Simvastatin. 4. Plavix 75 mg. 5. Alprazolam. 6. Nitroglycerin. 7. Aspirin 81 mg. 8. Famotidine. 9. Amlodipine. ALLERGIES: None. FAMILY HISTORY: Significant for peripheral vascular disease. SOCIAL HISTORY: She continues to smoke. No alcohol. REVIEW OF SYSTEMS: Twelve systems were reviewed, and other than that mentioned in the HPI, were unre markable. PHYSICAL EXAM: Temperature is 97.7, blood pressure is 122/58, pulse is 85, respiratory rate of 16, O 2 sat is 98%. General: Well-appearing female, lying flat in bed, alert, oriented, pleasant, fluent. HEENT: Mucous membranes are moist without lesions, ulcers, or exudate. Neck is supple. Trachea i s midline. Head is normocephalic, atraumatic. Heart: Regular rate and rhythm. Lungs: Clear to au scultation. Abdomen: Positive bowel sounds. Soft, nontender, nondistended. No hepatosplenomegaly, masses, rebound, or guarding. Skin is warm and dry. DIAGNOSTIC STUDIES/LAB DATA: Of note, white count is 12.9, hemoglobin went from 10.7 to 9.7, platele t count of 163. INR is 1.07. BUN is 23, creatinine 0.9. She did have a CT abdomen and pelvis when she came to the emergency room, which revealed no acute findings. ASSESSMENT AND PLAN: Pleasant 74-year-old female with vomiting, coffee-ground, and black and tarry s tools, who is on an aspirin and Plavix. I do wonder if she has an upper gastrointestinal bleed. Her BUN is elevated; however, it has come down. We do need to pursue an upper endoscopy. She is alread y on Protonix. I recommended we continue with the Protonix. We will plan on an upper endoscopy brody rrow as long as she remains stable. The patient was seen on the morning of 08/15/19 at approximately 7:30 in the morning. [id number]/[facility] #: [id number]
[2019-08-16] MEDS: Metoprolol Succinate XL TAB* 100 MG PO SCH ×2 (09:11→21:04)
--- NOTE | 2019-08-16 09:41 | PN ---
Subjective Date of Service: 08/16/19 Interval History: Ms. Amaro is feeling tired this morning. She did not sleep well overnight and is concerned that if she does not get enough sleep, she will get anxious. Had some neck pain last night that was resolved with Tylenol. No other complaints this morning. Denies CP or SOB. No concerns from nursing. Family History: Unchanged from Admission Social History: Unchanged from Admission Past Medical History: Unchanged from Admission Objective Active Medications: Acetaminophen (Tylenol Tab*) 650 mg PO Q4H PRN MILD PAIN or TEMP > 100.4 Alprazolam (Xanax Tab*) 0.25 mg PO BEDTIME PRN ANXIETY Dextrose (D50w Syringe 50 Ml*) 12.5 gm IV PUSH .FOR FS < 60 - SS PRN FS < 60 Pantoprazole Sodium (Protonix Iv Bag*) 80 mg in 250 mls @ 25 mls/hr IV Q10H JOSE Piperacillin Sod/Tazobactam (Sod 3.375 gm/ Sodium Chloride) 100 mls @ 25 mls/ hr IVPB Q8H JOSE Sodium Chloride (Ns 0.9% 1000 Ml) 1,000 mls @ 75 mls/hr IV PER RATE JOSE Insulin Human Lispro (Humalog*) 0 units SUBCUT AC JOSE; Protocol Metoprolol Succinate (Toprol Xl Tab*) 100 mg PO BID JOSE Ondansetron HCl (Zofran Inj*) 4 mg IV Q4H PRN NAUSEA/VOMITING Vital Signs - 8 hr 08/16/19 08/16/19 08/16/19 02:46 07:10 07:13 Temperature 97.4 F 97.7 F Pulse Rate 82 80 Respiratory 16 18 20 Rate Blood Pressure 105/36 128/55 (mmHg) O2 Sat by Pulse 97 97 Oximetry 08/16/19 09:05 Temperature Pulse Rate Respiratory Rate Blood Pressure 131/58 (mmHg) O2 Sat by Pulse Oximetry Oxygen Devices in Use Now: None Appearance: Elderly female lying in bed in NAD Ears/Nose/Mouth/Throat: Mucous Membranes Moist Neck: NL Appearance and Movements; NL JVP, Trachea Midline Respiratory: Symmetrical Chest Expansion and Respiratory Effort, Clear to Auscultation Cardiovascular: NL Sounds; No Murmurs; No JVD, RRR Abdominal: NL Sounds; No Tenderness; No Distention Extremities: No Edema Neurological: Alert and Oriented x 3 Lines/Tubes/Other Access: Clean, Dry and Intact Peripheral IV Result Diagrams: 08/16/19 05:16 08/16/19 05:16 Assess/Plan/Problems-Billing Assessment: Ms. Amaro is a 74 yo F with PMH of CAD with s/p stents and CABG, DM2, HTN, HLD, GERD, anxiety, frontal lobe hemorrhage; presented to [place] ED with c/o black stool and emesis, subsequently transfused 2 units PRBC and transferred to [facility] for GI consult. - Patient Problems (1) GI bleed Code(s): K92.2 - GASTROINTESTINAL HEMORRHAGE, UNSPECIFIED Comment: - Presented with c/o bloody stool and coffee-ground emesis - Transfused 2 units PRBC at [place] - Appreciate GI consult; recommends holding antiplatelets - NPO for EGD later today - Continue pantoprazole drip (2) Acute blood loss anemia Code(s): D62 - ACUTE POSTHEMORRHAGIC ANEMIA Comment: - Secondary to GI bleed; no evidence of chronic anemia - Trend H&H - Transfuse PRBC for Hgb <7 (3) Leukocytosis Code(s): D72.829 - ELEVATED WHITE BLOOD CELL COUNT, UNSPECIFIED Comment: - No other signs of infection - Possibly GI related, but this may just be reactive - Continue Zosyn for now (4) CAD (coronary artery disease) Code(s): I25.10 - ATHSCL HEART DISEASE OF [place] CORONARY ARTERY W/O ANG PCTRS Comment: - Patient is on lifelong DAPT for stents (most recent in 2016), but at this point, GI bleed poses a greater risk than [place], so will hold aspirin and Plavix at this time - DAPT will need to be restarted KATE - Continue metoprolol (5) Peripheral edema Code(s): R60.9 - EDEMA, UNSPECIFIED Comment: - Noted to have +1-2 pitting on admission - Echo unremarkable; no evidence of CHF - Patient typically takes furosemide PRN at home for LE edema; will hold furosemide at this point d/t GI bleed and resume once stable (6) Diabetes Code(s): E11.9 - TYPE 2 DIABETES MELLITUS WITHOUT COMPLICATIONS Comment: - Continue Lispro SS (7) HTN (hypertension) Code(s): I10 - ESSENTIAL (PRIMARY) HYPERTENSION Comment: - Continue metoprolol (8) DVT prophylaxis Code(s): Z29.9 - ENCOUNTER FOR PROPHYLACTIC MEASURES, UNSPECIFIED Comment: - SCDs only in the setting of GI bleed (9) DNR (do not resuscitate) Comment: Status and Disposition: Inpatient. EGD today. Anticipate d/c home when medically stable. Attending: Dima Zaman
[2019-08-16] MEDS: NS 0.9% 1000 ML** 1,000 ML IV SCH (13:26)
[2019-08-16] MEDS ORDERED: fentaNYL* 50 MCG/ML 2 ML VIAL (100 MCG VIAL) ONE (14:15)
[2019-08-16] MEDS ORDERED: Midazolam* 1 MG/ML 10 ML VIAL (10 MG) ONE (14:15)
--- NOTE | 2019-08-16 14:47 | PN ---
Progress Note - Progress Note Date of Service: 08/16/19 Note: procedure note: EGD 25 mg IV fent, 6 mg IV versed E--->mild EE, no bleeding G--->5 mm clean based antral ulcer, GILMAR bx obtained D---->mild duodenitis PUD, hold ASA for another 2 days, bid PPI x 4 wks, then q day forever; ok to restart anticoagulation in 2 days regular diet Rocky Perdomo MD [facility]
[2019-08-16] MEDS: Pantoprazole IV* 40 MG IV SCH (22:40)
[2019-08-16] MEDS: ALPRAZolam TAB* 0.25 MG PO PRN (22:40)
--- NOTE | 2019-08-17 04:34 | PRO ---
CC: Dr. Orlando Bronson * DATE OF PROCEDURE: 08/16/19 PROCEDURE PERFORMED: EGD. INDICATION: Anemia, hemorrhage of rectum and anus. REFERRING PHYSICIAN: Dr. Orlando Bronson. MEDICATIONS GIVEN: 25 mcg IV fentanyl, 6 mg IV Versed. PROCEDURE: After the EGD procedure including the risks, benefits, and alternatives, not limited to perforation, surgery, and/or were explained to Ms. Amaro, written consent was then obtained. IV medication was given and a bite- block was placed between the teeth. An Olympus gastroscope was then inserted into the patient's mouth, advanced down the esophagus, into the stomach , and into the distal duodenum. In the esophagus at the GE junction, she does have evidence of healing erosive esophagitis, some scarring, no active bleeding was seen. The scope was advanced through the GE junction into the body of the stomach. Retroflex view was unremarkable. Forward view did reveal a clean based ulcer in the antrum. Biopsies were obtained for H. pylori. The scope was advanced through a widely patent pylorus, into the duodenal bulb, and into the distal duodenum, which revealed duodenitis. The scope was withdrawn from the patient. She tolerated the procedure well, was returned to her hospital room in stable condition. IMPRESSION: 1. Complete upper endoscopy into the distal duodenum with biopsies. 2. Clean based ulcer in the antrum, status post GILMAR biopsy. She should hold her aspirin for the next 48 hours, in addition to holding anticoagulation for another 48 hours and then she can resume both. Monitor her stools very closely for any bleeding. [id number]/[facility] #: [id number] [facility]
[2019-08-17 05:34] LABS: ABS Basophils 0.1 10^3/ul (0-0.2); ABS Eosinophils 0.3 10^3/ul (0-0.6); ABS Lymphocytes 2.4 10^3/ul (1.0-4.8); ABS Monocytes 0.7 10^3/ul (0-0.8); Eosinophil % 2.5 %; Hematocrit 28 % (35-47); Hemoglobin 9.3 g/dL (12.0-16.0); Mean Corpuscular HGB Conc 33 g/dL (31-36); Mean Corpuscular Hemoglobin 30 pg (27-31); Mean Corpuscular Volume 91 fL (80-97); Mean Platelet Volume 8.9 fL (7.4-10.4); Platelet Count 205 10^3/uL (150-450); Red Blood Count 3.07 10^6 /uL (3.70-4.87); Red Cell Distribution Width 13 % (10-15); White Blood Count 13.5 10^3/uL (3.5-10.8)
[2019-08-17] MEDS: Insulin LISPRO* 1 UNITS UNIT SUBCUT SCH ×3 (07:24→17:13)
[2019-08-17] MEDS: ZOSYN 3.375 GM Q8H per EXTENDED INFUSION IVPB SCH ×6 (08:09→23:28)
[2019-08-17] MEDS: Metoprolol Succinate XL TAB* 100 MG PO SCH ×2 (08:09→20:21)
[2019-08-17] MEDS: Pantoprazole IV* 40 MG IV SCH ×2 (08:10→20:21)
--- NOTE | 2019-08-17 14:20 | PN ---
Subjective Date of Service: 08/17/19 Interval History: Ms. Amaro is feeling better today, but still tired. She did have one dark BM last night, not as dark as they had been previously. Ambulated earlier and started to feel poorly so she had to sit down. Denies CP, SOB. Intermittent back pain which is a common occurrence for her. No concerns from nursing. Family History: Unchanged from Admission Social History: Unchanged from Admission Past Medical History: Unchanged from Admission Objective Active Medications: Acetaminophen (Tylenol Tab*) 650 mg PO Q4H PRN MILD PAIN or TEMP > 100.4 Alprazolam (Xanax Tab*) 0.25 mg PO BEDTIME PRN ANXIETY Dextrose (D50w Syringe 50 Ml*) 12.5 gm IV PUSH .FOR FS < 60 - SS PRN FS < 60 Piperacillin Sod/Tazobactam (Sod 3.375 gm/ Sodium Chloride) 100 mls @ 25 mls/ hr IVPB Q8H JOSE Insulin Human Lispro (Humalog*) 0 units SUBCUT AC JOSE; Protocol Metoprolol Succinate (Toprol Xl Tab*) 100 mg PO BID JOSE Ondansetron HCl (Zofran Inj*) 4 mg IV Q4H PRN NAUSEA/VOMITING Pantoprazole Sodium (Protonix Iv*) 40 mg IV BID JOSE Vital Signs - 8 hr 08/17/19 08/17/19 08/17/19 06:56 07:45 07:46 Temperature 98.0 F 97.4 F Pulse Rate 84 95 Respiratory 20 20 Rate Blood Pressure 141/53 150/74 160/74 (mmHg) O2 Sat by Pulse 94 97 Oximetry 08/17/19 08/17/19 09:38 11:00 Temperature 97.8 F Pulse Rate 80 Respiratory 16 Rate Blood Pressure 130/60 141/48 (mmHg) O2 Sat by Pulse 98 Oximetry Oxygen Devices in Use Now: None Appearance: Elderly female lying in bed in NAD Ears/Nose/Mouth/Throat: Mucous Membranes Moist Neck: NL Appearance and Movements; NL JVP, Trachea Midline Respiratory: Symmetrical Chest Expansion and Respiratory Effort, Clear to Auscultation Cardiovascular: NL Sounds; No Murmurs; No JVD, RRR Abdominal: NL Sounds; No Tenderness; No Distention Extremities: No Edema Neurological: Alert and Oriented x 3 Lines/Tubes/Other Access: Clean, Dry and Intact Peripheral IV Nutrition: Taking PO's Result Diagrams: 08/17/19 05:16 08/16/19 05:16 Assess/Plan/Problems-Billing Assessment: Ms. Amaro is a 74 yo F with PMH of CAD with s/p stents and CABG, DM2, HTN, HLD, GERD, anxiety, frontal lobe hemorrhage; presented to [place] ED with c/o black stool and emesis, subsequently transfused 2 units PRBC and transferred to [facility] for GI consult. - Patient Problems (1) GI bleed Code(s): K92.2 - GASTROINTESTINAL HEMORRHAGE, UNSPECIFIED Comment: - Presented with c/o bloody stool and coffee-ground emesis - Transfused 2 units PRBC at [place] - Appreciate GI consult; recommends resuming DAPT in 2 days - EGD yesterday revealing a gastric ulcer without active bleeding - Continue pantoprazole BID (2) Acute blood loss anemia Code(s): D62 - ACUTE POSTHEMORRHAGIC ANEMIA Comment: - Secondary to GI bleed; no evidence of chronic anemia - Trend H&H - Transfuse PRBC for Hgb <8 d/t history of CAD (3) Leukocytosis Code(s): D72.829 - ELEVATED WHITE BLOOD CELL COUNT, UNSPECIFIED Comment: - No other signs of infection - Possibly GI related, but this may just be reactive - Continue Zosyn for now (4) CAD (coronary artery disease) Code(s): I25.10 - ATHSCL HEART DISEASE OF [place] CORONARY ARTERY W/O ANG PCTRS Comment: - Patient is on lifelong DAPT for stents (most recent in 2016), but at this point, GI bleed poses a greater risk than [place], so will hold aspirin and Plavix at this time - DAPT will be restarted 08/19/19 - Continue metoprolol (5) Peripheral edema Code(s): R60.9 - EDEMA, UNSPECIFIED Comment: - Noted to have +1-2 pitting on admission - Echo unremarkable; no evidence of CHF - Patient typically takes furosemide PRN at home for LE edema; will hold furosemide at this point d/t GI bleed and resume once stable (6) Diabetes Code(s): E11.9 - TYPE 2 DIABETES MELLITUS WITHOUT COMPLICATIONS Comment: - Continue Lispro SS (7) HTN (hypertension) Code(s): I10 - ESSENTIAL (PRIMARY) HYPERTENSION Comment: - Continue metoprolol (8) DVT prophylaxis Code(s): Z29.9 - ENCOUNTER FOR PROPHYLACTIC MEASURES, UNSPECIFIED Comment: - SCDs only in the setting of GI bleed (9) DNR (do not resuscitate) Comment: Status and Disposition: Inpatient. Anticipate d/c home when medically stable. Attending: Sally Otoole
[2019-08-17] MEDS: ALPRAZolam TAB* 0.25 MG PO PRN (20:21)
[2019-08-18 06:51] LABS: ABS Eosinophils 0.3 10^3/ul (0-0.6); ABS Lymphocytes 2.2 10^3/ul (1.0-4.8); ABS Monocytes 0.6 10^3/ul (0-0.8); ABS Neutrophils 8.3 10^3/ul (1.5-7.7); Eosinophil % 2.6 %; Hematocrit 27 % (35-47); Hemoglobin 9.1 g/dL (12.0-16.0); Lymphocyte % 19.3 %; Mean Corpuscular HGB Conc 34 g/dL (31-36); Mean Corpuscular Hemoglobin 31 pg (27-31); Mean Corpuscular Volume 91 fL (80-97); Platelet Count 210 10^3/uL (150-450); Red Blood Count 2.95 10^6 /uL (3.70-4.87); Red Cell Distribution Width 14 % (10-15); White Blood Count 11.5 10^3/uL (3.5-10.8)
[2019-08-18 07:06] LABS: BUN/Creatinine Ratio 15.8 (8-20); Calcium 8.6 mg/dL (8.6-10.3); EGFR African American 56.4 (>60); EGFR Non-African American 46.6 (>60); Potassium 3.7 mmol/L (3.5-5.0)
[2019-08-18] MEDS: Insulin LISPRO* 1 UNITS UNIT SUBCUT SCH ×3 (08:13→17:16)
[2019-08-18] MEDS: ZOSYN 3.375 GM Q8H per EXTENDED INFUSION IVPB SCH ×2 (08:17)
[2019-08-18] MEDS: Pantoprazole IV* 40 MG IV SCH ×2 (08:19→20:10)
[2019-08-18] MEDS: Acetaminophen TAB* 325 MG PO PRN (08:19)
[2019-08-18] MEDS: Metoprolol Succinate XL TAB* 100 MG PO SCH ×2 (08:20→20:11)
--- NOTE | 2019-08-18 11:05 | PN ---
Subjective Date of Service: 08/18/19 Interval History: Ms. Amaro is feeling okay today. Generally, she is feeling better, but she got washed up this morning and is feeling exhausted from that. This is upsetting to her because she is typically a pretty active person and does not remember ever feeling like this. Denies CP, SOB, dizziness. Continues to have dark brown, loose stool, but no obvious GI bleeding. No concerns from nursing. Family History: Unchanged from Admission Social History: Unchanged from Admission Past Medical History: Unchanged from Admission Objective Active Medications: Acetaminophen (Tylenol Tab*) 650 mg PO Q4H PRN MILD PAIN or TEMP > 100.4 Alprazolam (Xanax Tab*) 0.25 mg PO BEDTIME PRN ANXIETY Aspirin (Aspirin 81 Mg Chew Tab*) 81 mg PO DAILY JOSE Clopidogrel Bisulfate (Plavix Tab*) 75 mg PO DAILY JOSE Dextrose (D50w Syringe 50 Ml*) 12.5 gm IV PUSH .FOR FS < 60 - SS PRN FS < 60 Insulin Human Lispro (Humalog*) 0 units SUBCUT AC JOSE; Protocol Metoprolol Succinate (Toprol Xl Tab*) 100 mg PO BID JOSE Ondansetron HCl (Zofran Inj*) 4 mg IV Q4H PRN NAUSEA/VOMITING Pantoprazole Sodium (Protonix Iv*) 40 mg IV BID [facility] Vital Signs - 8 hr 08/18/19 08/18/19 08/18/19 03:20 07:10 08:00 Temperature 98.3 F 97.7 F Pulse Rate 88 85 Respiratory 16 16 16 Rate Blood Pressure 145/59 136/56 (mmHg) O2 Sat by Pulse 94 95 Oximetry Oxygen Devices in Use Now: None Appearance: Elderly female sitting in chair in NAD Ears/Nose/Mouth/Throat: Mucous Membranes Moist Neck: NL Appearance and Movements; NL JVP, Trachea Midline Respiratory: Symmetrical Chest Expansion and Respiratory Effort, Clear to Auscultation Cardiovascular: NL Sounds; No Murmurs; No JVD, RRR Abdominal: NL Sounds; No Tenderness; No Distention Extremities: No Edema Neurological: Alert and Oriented x 3 Lines/Tubes/Other Access: Clean, Dry and Intact Peripheral IV Nutrition: Taking PO's Result Diagrams: 08/18/19 06:22 08/18/19 06:22 Assess/Plan/Problems-Billing Assessment: Ms. Amaro is a 74 yo F with PMH of CAD with s/p stents and CABG, DM2, HTN, HLD, GERD, anxiety, frontal lobe hemorrhage; presented to [place] ED with c/o black stool and emesis, subsequently transfused 2 units PRBC and transferred to [facility] for GI consult. - Patient Problems (1) GI bleed Code(s): K92.2 - GASTROINTESTINAL HEMORRHAGE, UNSPECIFIED Comment: - Presented with c/o bloody stool and coffee-ground emesis - Transfused 2 units PRBC at [place] - Appreciate GI consult; recommends resuming DAPT 2 days post scope - EGD 08/16/19 revealing a gastric ulcer without active bleeding - Continue pantoprazole BID (2) Acute blood loss anemia Code(s): D62 - ACUTE POSTHEMORRHAGIC ANEMIA Comment: - Stable - Secondary to GI bleed; no evidence of chronic anemia - Transfuse PRBC for Hgb <8 d/t history of CAD (3) Leukocytosis Code(s): D72.829 - ELEVATED WHITE BLOOD CELL COUNT, UNSPECIFIED Comment: - No other signs of infection - Possibly GI related, but this may just be reactive - D/c Zosyn and trend WBC (4) CAD (coronary artery disease) Code(s): I25.10 - ATHSCL HEART DISEASE OF [place] CORONARY ARTERY W/O ANG PCTRS Comment: - Patient is on lifelong DAPT for stents (most recent in 2016), but at this point, GI bleed poses a greater risk than [place], so will hold aspirin and Plavix at this time - DAPT will be restarted 08/19/19 (ordered) - Continue metoprolol (5) Peripheral edema Code(s): R60.9 - EDEMA, UNSPECIFIED Comment: - Noted to have +1-2 pitting on admission - Echo unremarkable; no evidence of CHF - Patient typically takes furosemide PRN at home for LE edema - Resume furosemide today (6) Diabetes Code(s): E11.9 - TYPE 2 DIABETES MELLITUS WITHOUT COMPLICATIONS Comment: - Continue Lispro SS (7) HTN (hypertension) Code(s): I10 - ESSENTIAL (PRIMARY) HYPERTENSION Comment: - Continue metoprolol (8) DVT prophylaxis Code(s): Z29.9 - ENCOUNTER FOR PROPHYLACTIC MEASURES, UNSPECIFIED Comment: - SCDs only in the setting of GI bleed (9) DNR (do not resuscitate) Comment: Status and Disposition: Inpatient. Anticipate d/c home when medically stable, possibly Friday. Attending: Sally Otoole
[2019-08-18] MEDS: Furosemide TAB* 20 MG PO SCH (13:07)
[2019-08-19 05:15] LABS: ABS Basophils 0.1 10^3/ul (0-0.2); ABS Eosinophils 0.4 10^3/ul (0-0.6); ABS Lymphocytes 2.5 10^3/ul (1.0-4.8); ABS Monocytes 0.7 10^3/ul (0-0.8); ABS Neutrophils 7.7 10^3/ul (1.5-7.7); Eosinophil % 3.5 %; Hematocrit 29 % (35-47); Hemoglobin 9.7 g/dL (12.0-16.0); Lymphocyte % 21.9 %; Mean Corpuscular HGB Conc 34 g/dL (31-36); Mean Corpuscular Hemoglobin 31 pg (27-31); Mean Corpuscular Volume 92 fL (80-97); Mean Platelet Volume 9.1 fL (7.4-10.4); Platelet Count 245 10^3/uL (150-450); Red Blood Count 3.13 10^6 /uL (3.70-4.87); Red Cell Distribution Width 14 % (10-15); White Blood Count 11.3 10^3/uL (3.5-10.8)
[2019-08-19] MEDS: Clopidogrel TAB* 75 MG PO SCH (08:56)
[2019-08-19] MEDS: Pantoprazole IV* 40 MG IV SCH ×2 (08:56→22:07)
[2019-08-19] MEDS: Metoprolol Succinate XL TAB* 100 MG PO SCH ×2 (08:56→22:05)
[2019-08-19] MEDS: Furosemide TAB* 20 MG PO SCH (08:56)
[2019-08-19] MEDS: Aspirin 81 mg CHEW TAB* 81 MG TAB.CHEW PO SCH (08:56)
[2019-08-19] MEDS: Insulin LISPRO* 1 UNITS UNIT SUBCUT SCH ×3 (09:21→17:16)
[2019-08-19 10:33] LABS: Hematocrit 29 % (35-47); Hemoglobin 9.7 g/dL (12.0-16.0)
--- NOTE | 2019-08-19 19:58 | PN ---
Subjective Date of Service: 08/19/19 Interval History: At approx 0900, patient reported feeling dizziness to RN Valentine. Repeat H&H stable. At time of my eval in the afternoon, this was resolved. She denied chest pain, difficulty breathing, abd pain. She has had "chocolate covered raisinette" appearing stools which are brown and not black. She denies fever/ chills as well. Family History: Unchanged from Admission Social History: Unchanged from Admission Past Medical History: Unchanged from Admission Objective Active Medications: Acetaminophen (Tylenol Tab*) 650 mg PO Q4H PRN PRN Reason: MILD PAIN or TEMP > 100.4 Last Admin: 08/18/19 08:19 Dose: 650 mg Alprazolam (Xanax Tab*) 0.25 mg PO BEDTIME PRN PRN Reason: ANXIETY Last Admin: 08/17/19 20:21 Dose: 0.25 mg Aspirin (Aspirin 81 Mg Chew Tab*) 81 mg PO DAILY [facility] Last Admin: 08/19/19 08:56 Dose: 81 mg Clopidogrel Bisulfate (Plavix Tab*) 75 mg PO DAILY [facility] Last Admin: 08/19/19 08:56 Dose: 75 mg Dextrose (D50w Syringe 50 Ml*) 12.5 gm IV PUSH .FOR FS < 60 - SS PRN PRN Reason: FS < 60 Furosemide (Lasix Tab*) 20 mg PO DAILY [facility] Last Admin: 08/19/19 08:56 Dose: 20 mg Insulin Human Lispro (Humalog*) 0 units SUBCUT [facility]; Protocol Last Admin: 08/19/19 17:16 Dose: 2 unit Metoprolol Succinate (Toprol Xl Tab*) 100 mg PO BID [facility] Last Admin: 08/19/19 08:56 Dose: 100 mg Ondansetron HCl (Zofran Inj*) 4 mg IV Q4H PRN PRN Reason: NAUSEA/VOMITING Pantoprazole Sodium (Protonix Iv*) 40 mg IV BID [facility] Last Admin: 08/19/19 08:56 Dose: 40 mg Vital Signs - 8 hr 08/19/19 08/19/19 12:25 15:30 Temperature 97.4 F 97.8 F Pulse Rate 73 81 Respiratory 16 18 Rate Blood Pressure 124/50 132/61 (mmHg) O2 Sat by Pulse 97 98 Oximetry Oxygen Devices in Use Now: None Appearance: Elderly white female, laying in bed, appearing comfortable and in NAD Eyes: No Scleral Icterus, - - PERRL Ears/Nose/Mouth/Throat: Mucous Membranes Moist Neck: Trachea Midline Respiratory: Symmetrical Chest Expansion and Respiratory Effort, Clear to Auscultation Cardiovascular: NL Sounds; No Murmurs; No JVD, RRR Abdominal: NL Sounds; No Tenderness; No Distention, - Extremities: No Edema, No Clubbing, Cyanosis Skin: No Rash or Ulcers Neurological: Alert and Oriented x 3 Result Diagrams: 08/19/19 10:17 08/18/19 06:22 Microbiology and Other Data: Microbiology 08/16/19 14:39 CLOtest - Final Gastric Antrum 08/15/19 02:50 Urine Culture - Final Urine No Growth (<1,000 CFU/mL) Assess/Plan/Problems-Billing Assessment: Ms. Amaro is a 74 yo F with PMH of CAD with s/p stents and CABG, DM2, HTN, HLD, GERD, anxiety, frontal lobe hemorrhage; presented to [place] ED with c/o black stool and emesis, subsequently transfused 2 units PRBC and transferred to [facility] [place] consult. - Patient Problems (1) GI bleed Current Visit: Yes Status: Acute Code(s): K92.2 - GASTROINTESTINAL HEMORRHAGE, UNSPECIFIED SNOMED Code(s): 65475158 Comment: - Presented with c/o bloody stool and coffee-ground emesis - Transfused 2 units PRBC at [place] - Appreciate GI consult; recommends resuming DAPT 2 days post scope - EGD 08/16/19 revealing a gastric ulcer without active bleeding - Continue pantoprazole BID - H&H stable today and no hematochezia (2) Acute blood loss anemia Current Visit: Yes Status: Acute Code(s): D62 - ACUTE POSTHEMORRHAGIC ANEMIA SNOMED Code(s): 276855615 Comment: - Stable - Secondary to GI bleed; no evidence of chronic anemia - Transfuse PRBC for Hgb <8 d/t history of CAD (3) CAD (coronary artery disease) Current Visit: Yes Status: Acute Code(s): I25.10 - ATHSCL HEART DISEASE OF [place] CORONARY ARTERY W/O ANG PCTRS SNOMED Code(s): 25773436 Comment: - Patient is on lifelong DAPT for stents (most recent in 2016), but at this point - DAPT will be restarted today and monitoring H&H and BMs today - Continue metoprolol (4) Leukocytosis Current Visit: Yes Status: Acute Code(s): D72.829 - ELEVATED WHITE BLOOD CELL COUNT, UNSPECIFIED SNOMED Code(s): 819913493 Comment: - No other signs of infection - Possibly GI related, but this may just be reactive - Should be followed outpatient (5) Peripheral edema Current Visit: Yes Status: Acute Code(s): R60.9 - EDEMA, UNSPECIFIED SNOMED Code(s): 079719920 Comment: - Noted to have +1-2 pitting on admission - Echo unremarkable; no evidence of CHF - Patient typically takes furosemide PRN at home for LE edema - Resume furosemide today - Resolved today (6) Diabetes Current Visit: No Status: Acute Code(s): E11.9 - TYPE 2 DIABETES MELLITUS WITHOUT COMPLICATIONS SNOMED Code(s): 34464521 Comment: - Continue Lispro SS - Good BG control (7) HTN (hypertension) Current Visit: No Status: Acute Code(s): I10 - ESSENTIAL (PRIMARY) HYPERTENSION SNOMED Code(s): 46869959 Comment: - Continue metoprolol - Normotensive (8) DNR (do not resuscitate) Current Visit: Yes Status: Acute Comment: (9) DVT prophylaxis Current Visit: Yes Status: Acute Code(s): Z29.9 - ENCOUNTER FOR PROPHYLACTIC MEASURES, UNSPECIFIED SNOMED Code(s): 960178827 Comment: - SCDs only in the setting of GI bleed Status and Disposition: Inpatient. Anticipate d/c home when medically stable, possibly Friday.
[2019-08-20 06:20] LABS: ABS Basophils 0.1 10^3/ul (0-0.2); ABS Eosinophils 0.5 10^3/ul (0-0.6); ABS Lymphocytes 2.8 10^3/ul (1.0-4.8); ABS Monocytes 0.7 10^3/ul (0-0.8); ABS Neutrophils 8.1 10^3/ul (1.5-7.7); Eosinophil % 3.7 %; Hematocrit 31 % (35-47); Hemoglobin 10.4 g/dL (12.0-16.0); Lymphocyte % 22.9 %; Mean Corpuscular HGB Conc 34 g/dL (31-36); Mean Corpuscular Hemoglobin 31 pg (27-31); Mean Corpuscular Volume 91 fL (80-97); Mean Platelet Volume 8.9 fL (7.4-10.4); Platelet Count 286 10^3/uL (150-450); Red Blood Count 3.36 10^6 /uL (3.70-4.87); Red Cell Distribution Width 14 % (10-15); White Blood Count 12.1 10^3/uL (3.5-10.8)
[2019-08-20] MEDS: Metoprolol Succinate XL TAB* 100 MG PO SCH (09:28)
[2019-08-20] MEDS: Furosemide TAB* 20 MG PO SCH (09:29)
[2019-08-20] MEDS: Clopidogrel TAB* 75 MG PO SCH (09:29)
[2019-08-20] MEDS: Aspirin 81 mg CHEW TAB* 81 MG TAB.CHEW PO SCH (09:29)
[2019-08-20] MEDS: Pantoprazole IV* 40 MG IV SCH (09:30)
[2019-08-20] MEDS: Insulin LISPRO* 1 UNITS UNIT SUBCUT SCH (09:30)
[2019-08-20 09:59] VITALS: BP 118/53
--- NOTE | 2019-08-21 01:39 | DS ---
CC: Dr. Bronson; Dr. Perdomo * DISCHARGE SUMMARY: DATE OF ADMISSION: 08/14/19 DATE OF DISCHARGE: 08/20/19 ATTENDING PHYSICIAN WHILE IN THE HOSPITAL: Dr. Sally Ku * (dictated by PATRICK Keane). PRIMARY CARE PROVIDER: Dr. Bronson. CONSULTING STITCHDOWN THREAD LASTER: Dr. Perdomo. PRIMARY DIAGNOSIS: Upper gastrointestinal bleed. SECONDARY DIAGNOSES: 1. Coronary artery disease, status post coronary artery bypass grafting x3 and 6 stents. 2. Diabetes mellitus type 2. 3. Hypertension. 4. Hyperlipidemia. 5. Gastroesophageal reflux disease. 6. Anxiety. 7. History of frontal lobe hemorrhage. 8. History of bladder tumor, status post surgical removal. PERTINENT STUDIES WHILE IN THE HOSPITAL: CT abdomen and pelvis on 08/14/19, impression: No acute findings. Please see full report for further details. Transthoracic echocardiogram on 08/15/19: EF 65% to 70% without regional wall motion abnormalities and normal diastolic function parameters. Please see full report for details. PROCEDURES WHILE IN THE HOSPITAL: EGD performed on 08/16/[address] Perdomo with a findings of a clean based ulcer in the antrum. Evidence of healing erosive esophagitis at the GE junction, duodenitis was noted as well. There was no active bleeding. PERTINENT LABS: Hemoglobin at presentation was 10.7 (of note, this is after receiving 2 units of PRBCs at [facility]). Hemoglobin on the day of discharge was 10.4. H. pylori testing from EGD is negative. HISTORY OF PRESENT ILLNESS/HOSPITAL COURSE: Lise Amaro is a 74-year-old white female with past medical history significant for coronary artery disease, status post 3 CABG and 6 stents with a history of 4 MIs, diabetes mellitus type 2, hypertension, hyperlipidemia, GERD, who presented to the emergency department on 08/14/19 as a transfer from [facility] due to black stool and coffee-ground emesis. The patient was anemic at [facility] and received 2 units of PRBCs. She was transfused for hemoglobin less than 8 due to her significant coronary artery disease history. The patient had an endoscopy on 08/16/19, performed by Dr. Perdomo, which did not find any active bleeding, but it found clean based gastric ulcers. She was started on b.i.d. pantoprazole. The project management consultant Dr. Perdomo recommended holding her dual antiplatelet for 2 days after scope and monitoring and this was then restarted on 08/19/19. We monitored her H and H during this time to ensure that restarting dual antiplatelet therapy would not restart bleeding. She today was without any black stools. She has not vomited. No abdominal pain and her H and H actually has improved since the day prior. Additionally, the patient had some peripheral edema at presentation. This has since resolved. For this reason, a transthoracic echocardiogram was performed with the results as above. She takes p.r.n. Lasix for this at home and it was restarted. I believe that the volume of blood transfusions likely caused this lower extremity edema. The patient does have LVH which was likely contributing. Regarding her coronary artery disease, her statin and metoprolol were continued throughout the entirety of her hospital stay and regarding her diabetes, she overall had good control of her blood glucose. PHYSICAL EXAM ON DAY OF DISCHARGE: General: An elderly white female, sitting in hospital chair, appearing comfortable, in no acute distress. Eyes: PERRLA, sclerae anicteric. Lungs: Clear to auscultation throughout. Cardio: Regular rate and rhythm without murmurs, rubs, or gallops. Abdomen: Soft, nontender, nondistended. Extremities: No clubbing, cyanosis, or edema. Neuro: The patient is alert and oriented x3. DISCHARGE PLAN: The patient is advised to follow up with her primary care provider within 1 week. I advised that she have a repeat CBC and BMP at that time. She should return to the nearest emergency department if she is having bright red blood in her vomit or stool, melena, or again with coffee-ground emesis. She additionally advised to return to emergency department if she is experiencing shortness of breath, chest pain, or loss of consciousness. No recommendation was made by Dr. Perdomo as to follow up with the GI team, though I do believe that followup with him within 3 months would be appropriate if this could be coordinated with the primary care office. DIET: Heart healthy diet. ACTIVITY: The patient may return to normal activity as tolerated. DISCHARGE MEDICATIONS: New medications: 1. Pantoprazole 40 mg p.o. b.i.d. Continued home medications: 1. Glimepiride 0.5 mg p.o. daily. 2. Simvastatin 20 mg p.o. daily. 3. Aspirin 81 mg p.o. daily. 4. Plavix 75 mg p.o. daily. 6. Xanax 0.25 mg p.o. p.r.n. anxiety. 7. Nitroglycerin 0.4 mg sublingual q.5 minutes p.r.n. angina. 8. Lasix 20 mg p.o. q.24 hours p.r.n. lower extremity edema. 9. Metoprolol succinate 100 mg p.o. daily. CONDITION ON DISCHARGE: Stable. DISPOSITION: Home. TIME SPENT: Approximately 35 minutes was spent on this discharge, approximately half the time was spent at bedside evaluating the patient and discussing the plan of care. PATRICK KEANE [id number]/[facility] #: [id number] MTDD
== END 2019-08-20 12:04 | disposition home or self-care (01) | DRG 378 ==
LOC: MEDTELE 16:00 → UNDOADMIN 21:51 → MEDTELE 21:51 → INTOOBSV 22:52 → MEDTELE 22:52 → OBSVTOIN 08-15 16:00
PROVIDERS: ADMIT Internal Medicine; ATTEND Internal Medicine
PROC: 0DD98ZX Extraction of Duodenum, Via Natural or Artificial Opening Endoscopic, Diagnostic (ICD-10-PCS; principal; 2019-08-16)
PROC: 0DD78ZX Extraction of Stomach, Pylorus, Via Natural or Artificial Opening Endoscopic, Diagnostic (ICD-10-PCS; 2019-08-16)
DX: K92.1 Melena (principal); D62 Acute posthemorrhagic anemia; I25.10 Atherosclerotic heart disease of native coronary artery without angina pectoris; E11.9 Type 2 diabetes mellitus without complications; I10 Essential (primary) hypertension; E78.5 Hyperlipidemia, unspecified; Z66 Do not resuscitate; K21.9 Gastro-esophageal reflux disease without esophagitis; F41.9 Anxiety disorder, unspecified; K25.9 Gastric ulcer, unspecified as acute or chronic, without hemorrhage or perforation; K29.80 Duodenitis without bleeding; F17.210 Nicotine dependence, cigarettes, uncomplicated; R11.10 Vomiting, unspecified; D72.829 Elevated white blood cell count, unspecified; R60.0 Localized edema; M54.9 Dorsalgia, unspecified; I25.2 Old myocardial infarction; Z95.1 Presence of aortocoronary bypass graft; Z95.5 Presence of coronary angioplasty implant and graft; Z79.84 Long term (current) use of oral hypoglycemic drugs; Z79.02 Long term (current) use of antithrombotics/antiplatelets; Z79.82 Long term (current) use of aspirin; Z79.899 Other long term (current) drug therapy; Z84.89 Family history of other specified conditions; Z82.49 Family history of ischemic heart disease and other diseases of the circulatory system
CPT/HCPCS: 36415; 74177; 80048; 81003; 81015; 83605; 83735; 83880; 84484; 85014; 85018; 85025; 85610; 86850; 86900; 86901; 87077; 87086; 93005; 93306; 99156; 99157; A9270-GY; J2250; J2543; J3010; Q9967